=== PATIENT | male | born 1945 | race Caucasian/White ===

== ENCOUNTER 2023-10-13 18:28 | Inpatient (IN) | payer MEDICARE, SELFPAY ==
[2023-10-13] VITALS (13 sets, daily range): BP systolic 119–131; BP diastolic 61–78; PULSE 52–70; RESP 12–24; TEMP 35.8–37; O2SAT 95–100; BMI 26.5
--- NOTE | 2023-10-13 18:30 | EKG12_ITS ---
Test Reason : STEMI Blood Pressure : / mmHG Vent. Rate : 055 BPM Atrial Rate : 055 BPM P-R Int : 224 ms QRS Dur : 080 ms QT Int : 432 ms P-R-T Axes : 081 048 089 degrees QTc Int : 413 ms Critical Test Result: STEMI Sinus bradycardia with 1st degree A-V block with Premature atrial complexes Inferior infarct , possibly acute Lateral injury pattern ACUTE CA / STEMI Consider right ventricular involvement in acute inferior infarct Abnormal ECG Confirmed by KATHE PAGE, TESSY ([id number]), society editor KATY HARTLEY ([id number]) on 10/15/2023 11:48:44 AM Referred By: Rajeev Johnson Confirmed By:TESSY ARCHULETA MD
--- NOTE | 2023-10-13 18:34 | ED.VIS.CHEST ---
HPI History of Present Illness Chief Complaint: Chest Pain Detail of Chief Complaint: Chest pressure with diaphoresis shortness of breath Informant: patient Onset/Context/Timing Onset: Hours (0.5 hours prior to presentation) Activity at onset: sudden and exertion Timing: Continuous Quality: Positive for Pressure and Tightness Location: Substernal Current Severity: Moderate Maximum Severity: Severe Worsened By: Exertion Relieved By: Nothing Associated Symptoms: Positive for Nausea, Diaphoresis and Dyspnea Narrative Narrative: Patient is a 78-year-old male. History of type 2 diabetes on metformin for 10 years, elevated cholesterol. He does have elevated blood pressure on no meds. He is a former smoker. He was shoveling dirt in the garden. He developed chest discomfort. Squad was called. Prehospital EKG revealed criteria for inferior myocardial infarction. There is artifact. STEMI was called. On arrival patient Solimene chest pain. He is pale diaphoretic acid. He appears uncomfortable. He denies black or maroon stool. He denies history of congestive heart failure or any cardiac disease. He denies history of VTE. Prior Similar Symptoms: No Recent Illness/Hospitalization: No CVD Risk Factors: Positive for Hypertension, Diabetes and Hypercholesterolemia PE Risk Factors: Negative for Recent Travel/Surgery, Recent Immobilization, Prior DVT or PE, Cancer or OCP + Smoking + >/=35 TAD Risk Factors: Positive for Hypertension; Negative for Marfan's Syndrome or Family History PFSH PFSH Allergy/AdvReac Type Severity Reaction Status Date / Time No Known Allergies Allergy Verified 10/13/23 18:40 Social History (Updated 10/13/23 @ 18:[address] Royce Crook MD) household members: spouse Smoking Status: Former smoker ROS ROS ED Constitutional Constitutional ED: Denies chills or fever(s) Eyes Eyes: Reports none ENT ENT ED: Denies ear pain or rhinorrhea Cardiovascular Cardiovascular: Reports as per HPI; Denies orthopnea or paroxysmal nocturnal dyspnea Respiratory/Chest Respiratory/Chest: Reports dyspnea and dyspnea on exertion; Denies cough, orthopnea or paroxysmal nocturnal dyspnea Gastrointestinal Gastrointestinal: Reports nausea; Denies abdominal pain, melena or vomiting Genitourinary Genitourinary ED: Denies dysuria, hematuria or urinary frequency Musculoskeletal Musculoskeletal: Denies arthralgias, back pain or neck pain Integumentary Denies rash Neurologic Neurologic: Denies weakness Psychiatric Psychiatric: Denies anxiety or depression Endocrine Endocrinology: Reports cold intolerance and heat intolerance Hematologic/Lymphatic Hematologic/Lymphatic: Denies easy bleeding or easy bruising EXAM Physical Exam Const Positive well nourished and well developed Constitutional Narrative: Patient is diaphoretic and ashen in appearance General Appearance ED: well developed and pallor HEENT Reports moist mucous membranes normocephalic and atraumatic Eyes PERRL and EOMs intact bilaterally General Eye ED: Yes pale conjunctiva Chest Wall inspection of chest normal Resp No normal respiratory effort and No clear to auscultation bilaterally Auscultation: rales bilateral base Cardio regular rate, regular rhythm, S1 normal heart sound, S2 normal heart sound and no murmurs Peripheral Pulses: pulses 2+ throughout GI normal to inspection, nondistended, normoactive bowel sounds, soft to palpation, non-tender, non-distended and no masses; Negative for hepatosplenomegaly Back/Spine no CVA tenderness Extremity normal to inspection General Extremety ED: Negative for edema or pulses abnormal General Extremity: Negative for edema or pulses abnormal Neuro oriented x3 and CN's II-XII intact bilaterally Sensorium / Orientation: awake Psych mental status grossly normal Skin Skin Narrative: Diaphoretic and ashen in color General Skin Exam: pallor; Negative for jaundice MDM MDM MDM Narrative Medical decision making narrative: Family was called from prehospital EKG. Patient's story was consistent with acute coronary syndrome. EKG was obtained upon arrival and reveals ST elevation HI inferior leads with reciprocal changes. Patient does have evidence of first-degree heart block and is bradycardic. Squad was ordered to give. Aspirin, 180 of Brilinta and 4000 units of heparin prior to arrival. EKG obtained in the ER was sent to ethylene oxide panelboard operator. History & Record Review Discussion w/independent historian: EMS personnel, Patient and Family EKG Initial EKG: Interpretation: Sinus Bradycardia (Rate is 55. MD interval is 224 ms. QRS duration 80 ms. QT duration 432 ms. [place] is normal. Patient meets criteria for acute inferior myocardial infarction. There is reciprocal changes.) Treatment and Re-Evaluation :: Patient taken to Household Appliance Mechanic. Critical Care Time Critical Care Time: Yes Critical care time (excluding procedures): 30-74 minutes (15), Including time spent: (History, physical, prehospital communication, interpretation of prehospital EKG, discussion with ethylene oxide panelboard operator), Discussing w/Patient &/or Family/Elementary Assistant Teacher, Discussing w/Consultants and Arranging Admission or Transfer (Dr. Padilla is made aware of the patient and will see patient in Household Appliance Mechanic.) Discharge Plan Triage Chief Complaint: Chest Pain ED Provider: Royce Crook Dx/Rx/DC Orders Clinical Impression: Acute inferior myocardial infarction, Hypercholesterolemia, Type 2 diabetes mellitus, Hypertension, Bradycardia, sinus, First degree AV block Primary Care Provider: Jaylon Montemayor Disposition Disposition: Acute Care Hospital [facility]
[2023-10-13] MEDS: Ondansetron 4 MG/2 ML Vial IV (18:38)
[2023-10-13] MEDS: HYDROmorphone 0.5 MG/0.5 ML SYRINGE IV (18:39)
--- NOTE | 2023-10-13 19:06 | HP.PCM.HOS_ITS ---
HPI - General General Date of Admission: 10/13/23 Date of Service: 10/13/23 Chief Complaint: Chest pressure about 5:45 PM on 10/13/2023, STEMI alert HPI Narrative JONATHON PADILLA, is a 78 M came to ED with sudden onset of chest pressure in the mid dle of chest with radiation to jaw while he was drinking and working in his garden. It was severe 7-8/10 intensity, without relieving factor but of course aggravated by drinking and exertion. Patient stated that he was very heavy breathing and felt like could not breathe. He also sweating but denies any palpitation or passing out. Patient has history of hypertension, not on medication, diabetes mellitus type 2 for 10 years and dyslipidemia. Prehospital EKG revealed criteria for inferior wall RI and STEMI alert was called. Patient was mainly taken to Industrial Custodian and history was taken in the Industrial Custodian. EKG discussion assessment plan. Labs and chest x-ray were ordered Social history: Former smoker. Denies significant alcohol use or substance use. PFSH Allergy/AdvReac Type Severity Reaction Status Date / Time No Known Allergies Allergy Verified 10/13/23 18:40 Social History household members: spouse Smoking Status: Former smoker ROS ROS Narrative Constitutional: Reports severe acute onset of fatigue and weakness. No fever. HEENT: Reports systems reviewed and no addt'l complaints, except as documented Respiratory/Chest: Labored breathing, could not breathe at time of chest pressure. CVS: As described in HPI Gastrointestinal: Denies coffee ground emesis, hematemesis or vomiting Genitourinary: Denies burning urination or new urinary tract symptoms Musculoskeletal: Denies acute joint pain or limited range of motion. No acute injury Neurologic: Denies seizure-like symptoms. skin: No ulcer. No rash Endocrinology: Reports systems reviewed and no addt'l complaints, except as documented Hematologic/Lymphatic: Reports systems reviewed and no addt'l complaints, except as documented Rest 14 ROS are negative except as mentioned in HPI Vital Signs Vital Signs Vital Signs: 10/13/23 18:30 10/13/23 18:35 10/13/23 18:41 Temperature 96.5 F L Temperature Source Temporal Pulse Rate 56 L Respiratory Rate 24 H 24 H Respiratory Effort Short of Breath Respiratory Pattern Tachypnea Blood Pressure 131/78 H 131/78 H Blood Pressure Mean 95 Pulse Ox 95 Oxygen Delivery Method Nasal Cannula Oxygen Flow Rate (L/min) 2 10/13/23 18:42 Temperature 96.5 F L Temperature Source Pulse Rate 56 L Respiratory Rate 24 H Respiratory Effort Respiratory Pattern Blood Pressure 131/78 H Blood Pressure Mean 95 Pulse Ox 95 Oxygen Delivery Method Oxygen Flow Rate (L/min) Weight Weight: 0 oz Body Mass Index (BMI) 0.0 Physical Exam Narrative General: Alert, Oriented x3, Cooperative, morbid obese, diaphoretic HEENT: Atraumatic, PERRLA, EOMI, Normocephalic Oral: Oral mucosa dry no Gingival or Mucosal Lesions/ Ulcerations Neck: Supple, No JVD, Negative Carotid Bruits Chest wall/Lungs: Air entry diminished in bilateral lung bases. No crepitation/rhonchi Cardiovascular: Sinus rhythm rhythm, Normal S1, Normal S2, No M/G/R Abdomen: Bowel Sounds Present, Soft, Non Tender, Non-Distended : No dysuria. No renal angle tenderness. No suprapubic tenderness. Extremities: No edema, Capillary Refill Less than 3 Seconds Skin: No rashes, No breakdown Musculoskeletal: Chronic degenerative arthritis. No acute Tenderness to [place] ion of Joints or Extremities Neurological: Cranial nerves II-XII grossly intact, DTR 2+/4. No acute focal neurological deficit. Psych/Mental Status: Flat affect Assessment & Plan Assessment/Plan (1) Acute inferior myocardial infarction: (2) Bradycardia, sinus: PLAN: Plan Is a 71-year-old gentleman is being admitted after diagnosis of a STEMI, had a STEMI alert in the ED directly taken to the Industrial Custodian 1. Inferior wall STEMI: Twelve-lead EKG individually reviewed. It shows ST elevation about 4 mm in lead to 3 and aVF, reciprocal ST segment depression AND T wave inversio in V1 and V2. T waves upright in V4 V6, 1 and aVL. Sinus bradycardia at rate of 55 bpm, CO interval 224 ms, QRS 80 ms QT 430 ms. Therefore sinus bradycardia with first-degree AV block. Patient meets EKG criteria of inferior wall STEMI and directly taken to Industrial Custodian from ED as per protocol. Aspirin 324 mg, Brilinta 180 mg ordered but patient already in Industrial Custodian. Nitro ointment 1 inch every 6 hourly, hold for hypotension/headache. Patient is sinus bradycardic therefore an not candidate for beta-kyle and blood pressure systolic in 131. 2D echo is ordered. Further management and plan after the cardiac cath as recommended by the auto polisher. Patient will be admitted in ICU after cardiac cath. 2. Hypertension: BP 131/78, respiratory 24/min. Pulse ox 95% on 2 L of oxygen. Heart rate 56/min. Blood pressure in normal range. Does not need antihypertensive agent for now 3. Diabetes mellitus type 2: Home medications not updated yet. As per ED physician note patient on metformin but patient does not understand home medication as per med reconciliation. A1c tomorrow a.m. 4. Dyslipidemia: Fasting profile tomorrow AM. 5. Morbid obesity: Brand Marketing Manager consult and weight loss counseling done. 6. VTE prophylaxis: High risk. Lovenox 40 mg subcu daily after 24 hours cardiac cath if coagulation parameters permit. Discontinue if platelet count drops less than 50,000 or hemoglobin less than 8 g% Advance directive/living will: Full code unverified. Patient in Industrial Custodian, emergent cardiac cath therefore deferred for future Charges/Coding Visit Charges Inpatient E&M: 37873 Init Hosp L3
--- NOTE | 2023-10-13 19:11 | EKG12_ITS ---
Test Reason : post hear cath Blood Pressure : / mmHG Vent. Rate : 055 BPM Atrial Rate : 055 BPM P-R Int : 184 ms QRS Dur : 082 ms QT Int : 428 ms P-R-T Axes : 062 -14 065 degrees QTc Int : 409 ms Sinus bradycardia Inferior infarct , age undetermined Abnormal ECG When compared with ECG of 13-OCT-2023 18:27, MANUAL COMPARISON REQUIRED, DATA IS UNCONFIRMED Confirmed by KATHE PAGE, TESSY ([id number]), editorial cartoonist SUKI FLORES ([id number]) on 10/15/2023 9:36:25 AM Referred By: Rajeev Johnson Confirmed By:TESSY ARCHULETA MD
[2023-10-13 19:47] LABS: Absolute Lymphocyte Count 3.73 X10^3/uL (0.83-4.51); Basophil# 0.09 X10^3/uL; Eosinophil# 0.29 X10^3/uL; Eosinophils% 3.2 % (0-5); Hematocrit 45.2 % (40-54); Hemoglobin 14.7 g/dL (13.0-16.5); Lymphocyte # 3.73 X10^3/ul (0.83-4.51); Lymphocyte % 41.8 % (19-41); Mean Corp Hgb Conc 32.5 g/dL (32-36); Mean Corpuscular Hgb 27.5 pg (27.0-32.0); Mean Corpuscular Volume 84.5 fL (80-94); Monocyte# 0.79 X10^3/uL; Monocyte% 8.8 % (0-10); NRBC Flagged by Analyzer 0 % (0-5); Neutrophil % 44.9 % (47-70); Platelet Count 215 K/mm3 (150-450); RBC Distribution Width CV 13.4 % (11.6-14.6); RBC Distribution Width SD 41.1 fl (35.1-43.9); Red Blood Count 5.35 M/mm3 (4.6-6.2); White Blood Count 8.9 K/mm3 (4.4-11.0)
[2023-10-13 19:56] LABS: Prothrombin Time (Protime)PT. 12.9 SECONDS (11.7-14.9)
[2023-10-13 19:57] LABS: Partial Thromboplast Time 26.7 Seconds (24.1-36.2)
[2023-10-13 20:02] LABS: ALB/GLOB Ratio 1.3 RATIO (0.9-2.4); AST(SGOT) 13 U/L (15-37); Alanine Aminotransfer ALT/SGPT 17 U/L (16-61); Albumin, Serum 3.9 g/dL (3.2-5.0); Alkaline Phosphatase 77 U/L (45-117); Anion Gap 9 (5-15); BUN 24 mg/dL (7-18); BUN/Creat Ratio 18.5 RATIO (10-20); Calcium,Total 9.1 mg/dL (8.5-10.1); Chloride 110 mmol/L (98-107); EST Glomerular Filtration Rate 57 mL/min (>60); Est Glom Filt Rate - Afr Amer 69 mL/min (>60); Globulin 3.1 g/dL (2.2-4.2); Glucose 159 mg/dL (74-106); Potassium 3.9 mmol/L (3.5-5.1); Sodium Level 142 mmol/L (136-145); Troponin-I HS 6 pg/mL (3.0-78.0)
--- NOTE | 2023-10-13 20:11 | PCM.CONS.C ---
Assessment & Plan Assessment/Plan (1) Acute inferior myocardial infarction: PLAN: Treated with drug-eluting stents to the distal RCA. Patient has residual disease in the left main and LAD that will need staged PCI or CABG. At this time please keep the patient on aspirin, Brilinta, statin. His heart rate has improved after PCI. Most likely he should be able to tolerate a beta-kyle from tomorrow morning. HPI Consult Data Date of Consult: 10/13/23 HPI Narrative Reason for Consultation: STEMI HPI Narrative: JONATHON PADILLA, is a 78 M who presents with chest pain and was found to have inferior ST elevation NE on EKG. He was brought emergently to the cardiac Client Architect and underwent coronary angiography which revealed 100% occlusion of the distal RCA that was treated with drug-eluting stents. He has residual 50% stenosis in the left main and 80% stenosis in the LAD diagonal bifurcation that will need staged PCI. Patient's chest pain has resolved at the end of the procedure and is doing well. He is being admitted to the CCU for further management. Review of systems: All systems reviewed. All system negative except that in HPI PFSH Allergy/AdvReac Type Severity Reaction Status Date / Time No Known Allergies Allergy Verified 10/13/23 18:40 Social History household members: spouse Smoking Status: Former smoker Physical Exam Const alert HEENT normocephalic Eyes no scleral icterus Resp normal respiratory effort Psych mental status grossly normal Risk Stratification Risk Stratification Applicable: No Charges/Coding Visit Charges Inpatient E&M: 11502 Init Hosp L2 Objective Data Vital Signs: Vital Signs Temp Pulse Resp BP Pulse Ox O2 Del Method O2 Flow Rate 96.5 F L 56 L 24 H 131/78 H 95 Nasal Cannula 2 10/13/23 18:42 10/13/23 18:42 10/13/23 18:42 10/13/23 18:42 10/13/23 18:42 10/13/23 18:35 10/13/23 18:35 Oxygen Flow Rate (L/min) 2 Oxygen Delivery Method Nasal Cannula Weight: 0 oz Body Mass Index (BMI) 0.0 Intake & Output: Intake and Output for Last 24 Hours 10/11/23 10/12/23 10/13/23 23:59 23:59 23:59 Intake Total 0 / 0 Balance 0 / 0 Lab / Micro Data 10/13/23 18:45 10/13/23 18:45 Labs: Laboratory Results - last 24 hr 10/13/23 18:45: WBC 8.9, RBC 5.35, Hgb 14.7, Hct 45.2, MCV 84.5, MCH 27.5, MCHC 32.5, RDW Std Deviation 41.1, RDW Coeff of Jag 13.4, Plt Count 215, MPV 12.0, Immature Gran % (Auto) 0.300, Neut % (Auto) 44.9 L, Lymph % (Auto) 41.8 H, Preston % (Auto) 8.8, Eos % (Auto) 3.2, Baso % (Auto) 1.0, Absolute Neuts (auto) 4.0, Absolute Lymphs (auto) 3.73, Nucleated RBC % 0, PT 12.9, INR 1.0, APTT 26.7, Sodium 142, Potassium 3.9, Chloride 110 H, Carbon Dioxide 23.0, Anion Gap 9, BUN 24 H, Creatinine 1.30, Estim Creat Clear Calc 0.00, Est GFR (MDRD) Af Amer 69, Est GFR (MDRD) Non-Af 57 L, BUN/Creatinine Ratio 18.5, Glucose 159 H, Calcium 9.1, Magnesium 2.0, Total Bilirubin 0.60, AST 13 L, ALT 17, Alkaline Phosphatase 77, Troponin I High Sens 6, Total Protein 7.0, Albumin 3.9, Globulin 3.1, Albumin/Globulin Ratio 1.3 Cardiology Labs/Tests 10/13/23 18:45: WBC 8.9, RBC 5.35, Hgb 14.7, Hct 45.2, MCV 84.5, MCH 27.5, MCHC 32.5, Plt Count 215, MPV 12.0, Immature Gran % (Auto) 0.300, Neut % (Auto) 44.9 L, Lymph % (Auto) 41.8 H, Preston % (Auto) 8.8, Eos % (Auto) 3.2, Baso % (Auto) 1.0, Absolute Neuts (auto) 4.0, Nucleated RBC % 0, PT 12.9, INR 1.0, APTT 26.7, Sodium 142, Potassium 3.9, Chloride 110 H, Carbon Dioxide 23.0, Anion Gap 9, BUN 24 H, Creatinine 1.30, Est GFR (MDRD) Af Amer 69, Est GFR (MDRD) Non-Af 57 L, BUN/Creatinine Ratio 18.5, Glucose 159 H, Calcium 9.1, Magnesium 2.0, Total Bilirubin 0.60 Rhythm: EKG: ECHO: Stress Test: Cardiac Cath: PCI: CT Surgery: Holter monitor: EPS: PPM: CXR: Chest CT Scan:
--- NOTE | 2023-10-13 20:15 | ECHOD_ITS ---
Reason For Study: S/P MT Procedure This was a 2D Doppler, Color Flow transthoracic echocardiogram. Exam performed portable in ICU/CCU. Left Ventricle Normal LV size. Left ventricular systolic function is normal. The left ventricular ejection fraction is 60 %. Stage 1 diastolic dysfunction. No regional wall motion abnormalities noted. Right Ventricle Normal RV size. Normal systolic function. Atria Normal left atrium. Normal right atrium. Mitral Valve Normal mitral valve. Tricuspid Valve Normal tricuspid valve. Mild tricuspid valve insufficiency. Aortic Valve Trisinus/trileaflet aortic valve. Pulmonic Valve Normal pulmonic valve. Great Vessels Normal aortic root. The pulmonary artery is normal size. Normal inferior vena cava. Pericardium/Pleural No pericardial effusion. MMode/2D Measurements & Calculations LVIDd: 4.2 cm IVSd: 1.2 cm Ao root diam: 3.4 cm LVIDs: 2.8 cm LVPWd: 1.0 cm RVDd: 3.8 cm FS: 34.3 % LAV(MOD-bp): 24.9 ml LVAd ap4: 25.6 cm2 LVAd ap2: 23.7 cm2 LAV(MOD-bp) Indexed: 12.6 ml/m2 LVLd ap4: 8.7 cm LVLd ap2: 8.7 cm LAV(MOD-sp2): 25.3 ml EDV(MOD-sp4): 62.2 ml EDV(MOD-sp2): 52.5 ml LAV(MOD-sp4): 25.3 ml EDV(sp4-el): 64.3 ml EDV(sp2-el): 55.1 ml LVAs ap4: 14.6 cm2 LVAs ap2: 11.7 cm2 LVLs ap4: 7.3 cm LVLs ap2: 6.8 cm ESV(MOD-sp4): 24.4 ml ESV(MOD-sp2): 16.9 ml ESV(sp4-el): 24.6 ml ESV(sp2-el): 17.0 ml EF(MOD-sp4): 60.7 % EF(MOD-sp2): 67.9 % EF(sp4-el): 61.8 % SV(MOD-sp4): 37.7 ml SV(MOD-sp2): 35.6 ml SV(sp4-el): 39.7 ml LA dimension(2D): 3.6 cm LA A4 area: 11.7 cm2 RA A4 area: 9.9 cm2 TAPSE: 2.3 cm Time Measurements MV dec time: 0.22 sec Doppler Measurements & Calculations MV E max sha: 76.9 cm/sec Lat Peak E' Sha: 6.7 cm/sec Med Peak E' Sha: 6.7 cm/sec MV A max sha: 81.7 cm/sec E/E' lat: 11.4 E/E' med: 11.4 MV E/A: 0.94 MV V2 max: 91.3 cm/sec MV P1/2t max sha: 89.0 cm/sec Ao V2 max: 193.4 cm/sec MV max P.3 mmHg MV P1/2t: 70.3 msec Ao max P.0 mmHg MV V2 mean: 46.2 cm/sec MV dec slope: 371.2 cm/sec2 Ao V2 mean: 140.8 cm/sec MV mean P.0 mmHg Ao mean P.7 mmHg MV V2 VTI: 31.1 cm MVA(P1/2t): 3.1 cm2 Ao V2 VTI: 41.2 cm AV (velocity ratio): 0.76 LV V1 max: 143.7 cm/sec PA V2 max: 91.4 cm/sec TR max sha: 187.6 cm/sec LV V1 max P.3 mmHg PA V2 mean: 62.3 cm/sec TR max P.1 mmHg LV V1 mean P.9 mmHg LV V1 mean: 90.9 cm/sec LV V1 VTI: 31.2 cm ECHO/Echo Complete Interpretation Summary Normal LV size. Left ventricular systolic function is normal. The left ventricular ejection fraction is 60 %. Stage 1 diastolic dysfunction. Ordering Physician: Jaylon Montemayor Referring Physician: Rajeev Johnson Performed By: Es Leon, MIKYCS, RVT
--- NOTE | 2023-10-13 20:30 | CL.I_ITS ---
Patient Name: JONATHON PADILLA Study Date: 10/13/2023 Performing: Joie Johnson MD Ht: 69 inches 175.26 cm : 1945 Wt: 175.2 lbs 79.37 kg Age: 78 Gender: male BSA: 1.95 PROCEDURE(S) PERFORMED DC02-(50087)LHC/COR IC16-([id number]/[id number])AMI, JAXON OR PTCA, ARTERY/GRAFT, SINGLE VESSEL CLINICAL PROFILE AND CO-MORBIDITIES Indications: ACS <= 24 hrs Heart Failure: None Stress/Imaging Stress/Image Study Performed: No CAD Presentations: STEMI. Symptom onset Date/Time: 10/13/23 Time Not Available CONCLUSIONS CAD as described. Successful thrombectomy and drug-eluting stent placement to the distal RCA RECOMMENDATIONS Patient will need staged PCI/CABG of left main and LAD diagonal bifurcation DESCRIPTION OF PROCEDURE The patient arrived to the procedure lab. The risks and benefits of the procedure as well as a full description of our services here and lack of surgical backup were fully explained to the patient and/or their significant other prior to the catheterization. The Timeout was completed, verifying the correct patient and procedure. The patient's procedural site was prepped and draped in the usual fashion. Local anesthetic was given subcutaneously to right radial region with Lidocaine 2%. Using a modified Seldinger technique, arterial access was obtained via the right radial artery, a 6Fr sheath was inserted.. Right Coronary Artery selective angiography was then performed in multiple views using a 5 Fr. JR 4 catheter. Left Coronary Artery selective angiography was performed in multiple views using a 5 Fr. JL3.5 catheter inserted and engaged into the RCA. bmw Guide wire was advanced to the RCA. susana 3.0 x 8 Drug Eluting stent was advanced across the lesion in the right coronary, distal. Angiogram performed post stent deployment. susana 3.0 x 12 Drug Eluting stent was advanced across the lesion in the right coronary, distal. Angiogram performed post stent deployment. The arterial sheath was pulled and a TR Band was applied for hemostasis CORONARY ANGIOGRAPHY DOMINANCE: Right Dominant LEFT MAIN: 50 % Stenosis LEFT ANTERIOR DESCENDING ARTERY: PROX LAD: 80 % Stenosis This is at the LAD diagonal bifurcation. Immediately after the diagonal branch there is an 80% stenosis in the mid LAD as well. CIRCUMFLEX ARTERY: Mild luminal irregularities RIGHT CORONARY ARTERY: DISTAL RCA: 100 % Stenosis INTERVENTION INFORMATION LESION SITE: RCA (Distal) Lesion Complexity: High/C, chronic total occlusion: No, lesion at bifurcation: No, thrombus present: Yes, lesion length: 8 mm, culprit lesion: Yes, Previously treated lesion: No Pre Stenosis: 100 % Pre intervention SRINI flow: 0 PROCEDURE: Thrombectomy, Drug Eluting Stent with pre dilatation. Post Stenosis: 0 % Post intervention SRINI flow: 3 Lesion Devices: Cordis 6 Fr JR4 100cm Guide Catheter Zhou .014 190cm BMW [place] Straight Terumo Priority One Aspiration Catheter Medtronic 3.0 x 08 SUSANA FRONTIER JAXON Medtronic 3.0 x 12 SUSANA FRONTIER JAXON COMPLICATIONS No Complications PROCEDURE MEDICATIONS Versed 2 mg IV Fentanyl 50 mcg IV Oxygen: 2 L/min via nasal cannula Heparin given IA 10/13/2023 18:57:25 Nitro 200 mcg IC 10/13/2023 19:11:02 Nitro 100 mcg Ia radial 10/13/2023 19:19:18 Nitro 100 mcg IC 10/13/2023 19:22:02 Verapamil 2.5mg, given IA 10/13/2023 19:18:13 SUMMARY OF HEMODYNAMIC DATA Time AIR REST ECG 18:47:25 AO 111/40 (61) SA 19:00:52 Signed By Joie Johnson MD On 10/13/2023 20:30:11 Joie Johnson MD
[2023-10-13 20:52] LABS: Lactic Acid 2.7 mmol/L (0.4-1.9)
--- NOTE | 2023-10-13 21:00 | NURSING ---
Patient arrived from Compensation Advisor with a large hematoma on the right forearm (same side as Radial puncture site). The area of the hematoma was covered by a inflated blood pressure cuff for 15 minutes per Paola/Nico RN report when transferring the patient which was removed by the Compensation Advisor RNs after that 15 minutes was up.
[2023-10-13] MEDS: Nitroglycerin Oint 1 INCH PACKET TD (21:12)
[2023-10-13] MEDS: 0.9% Normal Saline (1000mL) 1,000 ML 75 ML IV (21:14)
--- NOTE | 2023-10-13 22:26 | CRPHASE1_ITS ---
Patient Communication Patient Information PHII Cardiac Rehab Discussed with Patient:: Yes Guide to Cardiac Rehab Given to Patient:: Yes Cardiac Rehab Facility Choice List Given to Patient:: Yes Communication to Cardiac Rehab Choice Program [facility] CR PHII:: Communication Given to CR Electrical Intern:: Rajeev Johnson Phase II Cardiac Rehab:: Yes Sessions:: 36 sessions - 3 days/wk, 12 weeks Cardiac Rehabilitation Info Program Information Cardiac Rehabilitation Program Information: Cardiac Rehab The cardiac rehab team at [facility] consists of highly skilled exercise physiologists, nurses, respiratory therapists and physicians working together with you. Our purpose is to help you have a full recovery and achieve the goals you set for yourself. Over the years many of our patients have returned to activities they assumed they would never do again! We can help restore your confidence and motivation to make lifestyle changes that can have a significant impact on your health and quality of life! We can help answer questions and concerns you may have about exercise, lifestyle, medications, diet, stress and anxiety which are common following a hospitalization. WE monitor ECG and vital signs during exercise and discuss your progress with you and report to your physician(s). Cardiac Rehab is proven to help reduce readmissions, improve functional capacity and lower recurrence of problems with your heart. Our Cardiac Rehab program is Certified by the [place] [employer] Pulmonary [employer] (AACVPR) and Accredited by the [employer] through our [facility]. You can contact us at . We invite you to call us with your questions or to get started in our program. If you have other questions or concerns be sure to ask your physician/provider during your follow-up visit. WE look forward to seeing you!
--- NOTE | 2023-10-13 22:27 | CRPH1.INST_ITS ---
General Education Discussed with Patient CAD and cardiac anatomy and function:: Patient communicates acknowledgment Explanation of diagnoses and procedures:: Patient communicates acknowledgment Sign/Symptoms of [place]:: Patient communicates acknowledgment Antiplatelet therapy: Patient communicates acknowledgment Proper use of NTG-SL: Patient communicates acknowledgment Emergency procedures and activation of EMS: Patient communicates acknowledgment Compliance of all prescribed medications: Patient communicates acknowledgment Smoking Risk Factors Patient Nicotine/Smoking Risk Factors Are:: Non-smoker Recommendations Recommendations Include:: Smoking cessation strategies/Smoking packet, Second- hand smoke recommendation and Previous smoker; encourage continued cessation Response Code Nicotine/Smoking Response Code:: Patient communicates acknowledgment Dyslipidemia Risk Factors Patient Dyslipidemia Risk Factors Are:: Total Cholesterol, Triglycerides, HDL and LDL Recommendations Recommendations Include:: Lipid profile provided, Lipid profile not available, Reviewed NCEP/ATP guidelines and Therapeutic Lifestyle Change dietary guidelines Response Code Dyslipidemia Response Code:: Patient communicates acknowledgment Overweight/Obesity Risk Factors Patient Overweight/Obesity Risk Factors Are:: Overweight = 26-29 Recommendations Recommendations Include:: Weight loss of 5-10%, Reduced calorie diet and Exercise 5-7 times/week Response Code Overweight/Obesity:: Patient communicates acknowledgment Hypertension Recommendations Recommendations Include:: BP <130/80 if diabetic, DASH dietary guidelines, Decrease/maintain normal body weight and Moderation of ETOH Response Code Hypertension:: Patient communicates acknowledgment Diabetes Risk Factors Patient Diabetes Risk Factors Are:: Elevated blood sugars and Post-op hyperglycemia Recommendations Recommendations Include:: Maintain fasting blood sugars 70-110 md/dL, Maintain HgbA1c of 6% or less, Monitor blood sugar as prescribed, Diabetic dietary guidelines and Decrease/maintain body weight Response Code Diabetes:: Patient communicates acknowledgment Metabolic Syndrome Risk Factors Patient Metabolic Syndrome Risk Factors Are [3 of 5]:: Fasting blood sugar > 100 mg/dL, Waist circumference > 35 [female] or 40 [male], High triglyceride >150, Hypertension and Low HDL <40 [male] or < 50 [female] Recommendations Recommendations Include:: Reinforce compliance to risk factor modifications and Patient is diabetic Response Code Metabolic Syndrome Response Code:: Patient communicates acknowledgment Sedentary Risk Factors Patient Sedentary Risk Factors Are:: Lack of regular exercise Recommendations Recommendations Include:: Aerobic exercise 5-7 times/week for 20-30 minutes continuously, Benefits of regular exercise, Discussed home walking program and Monitored Outpatient Cardiac Rehab Response Code Sedentary Response Code:: Patient communicates acknowledgment Stress Recommendations Recommendations Include:: Identification of stressors, and assessment of coping skills and Stress management techniques Response Code Stress Response Code:: Patient communicates acknowledgment
[2023-10-13 22:50] LABS: Troponin-I HS 2045 pg/mL (3.0-78.0)
--- NOTE | 2023-10-13 23:00 | RAD_ITS ---
INDICATION: chest pain -- If not obtained within past 24 hours. EXAMINATION/TECHNIQUE: X-RAY - AP view of chest COMPARISON: None FINDINGS: LINES/DEVICES: None. LUNGS: Slightly hyperexpanded lungs. No pulmonary edema. Bibasilar linear opacities. No sizable pleural effusion. No detectable pneumothorax. MEDIASTINUM AND CARDIOVASCULAR STRUCTURES: Heart normal size. Atherosclerotic calcifications along aorta. BONES AND SOFT TISSUES: Skeletal degenerative changes. Chronic right rib fractures. RAD/Chest 1 View (Portable) IMPRESSION: Mild COPD with bibasilar linear scarring versus atelectasis. Electronically Signed: Jaylon Barone MD at 1:26 EDT ,
--- NOTE | 2023-10-13 23:39 | NURSING ---
Firm, raised hematoma without ecchymosis noted to pt's right forearm proximal to TR band positioning, encompassing most of the brachioradialis muscle from the antecubital fossa distal toward tendon attachment. Explained to pt importance of removing hematoma as it could be r/t nerve, tissue and blood vessel compression and possible discomfort it may cause during the massage; area massaged w/firm rotational pressure until noted firmness was removed. Pt tolerated procedure w/grimacing and groaning, but refused offered pain medicine, stating, You aren't going to be doing this all night, are you? Pt informed that the site will be monitored and then determine if further massage is necessary.
[2023-10-14] VITALS (27 sets, daily range): BP systolic 92–188; BP diastolic 57–92; PULSE 50–68; RESP 13–25; TEMP 36–36.9; O2SAT 94–100; BMI 26.5
[2023-10-14 00:15] LABS: Reflex Lactate? Y
[2023-10-14 03:07] LABS: Absolute Lymphocyte Count 2.14 X10^3/uL (0.83-4.51); Absolute Neutrophil Count 5.4 X10^3/uL (2.0-7.7); Basophil# 0.08 X10^3/uL; Basophil% 0.9 % (0-1); Eosinophil# 0.12 X10^3/uL; Eosinophils% 1.4 % (0-5); Hematocrit 38.8 % (40-54); Hemoglobin 12.6 g/dL (13.0-16.5); Lymphocyte # 2.14 X10^3/ul (0.83-4.51); Lymphocyte % 25.1 % (19-41); Mean Corp Hgb Conc 32.5 g/dL (32-36); Mean Corpuscular Hgb 27.5 pg (27.0-32.0); Mean Corpuscular Volume 84.5 fL (80-94); Mean Platelet Vol. 10.9 fl (6.2-12.0); Monocyte# 0.76 X10^3/uL; Monocyte% 8.9 % (0-10); NRBC Flagged by Analyzer 0 % (0-5); Neutrophil # 5.38 X10^3/uL (2.7-7.7); Neutrophil % 63.2 % (47-70); Platelet Count 167 K/mm3 (150-450); RBC Distribution Width CV 13.2 % (11.6-14.6); RBC Distribution Width SD 40.6 fl (35.1-43.9); Red Blood Count 4.59 M/mm3 (4.6-6.2); White Blood Count 8.5 K/mm3 (4.4-11.0)
[2023-10-14 03:31] LABS: Anion Gap 5 (5-15); BUN 25 mg/dL (7-18); BUN/Creat Ratio 24.5 RATIO (10-20); Calcium,Total 8.4 mg/dL (8.5-10.1); Chloride 113 mmol/L (98-107); Cholesterol 109 mg/dL (200); Creatinine, Serum 1.02 mg/dL (0.70-1.30); EST Glomerular Filtration Rate 75 mL/min (>60); Est Glom Filt Rate - Afr Amer 91 mL/min (>60); Estimated Creatinine Clearance 60.65 ml/min; Glucose 143 mg/dL (74-106); High Density Lipoprotein 42 mg/dL; Phosphorus 4.2 mg/dL (2.5-4.9); Sodium Level 143 mmol/L (136-145); Thyroid Stim Hormone (TSH) 2.04 uIU/mL (0.358-3.74); Triglycerides 155 mg/dL; Very Low Density Lipoprotein 31 mg/dL (5-40)
[2023-10-14 03:35] LABS: Troponin-I HS 7124 pg/mL (3.0-78.0)
[2023-10-14 04:12] LABS: Lactic Acid 0.9 mmol/L (0.4-1.9)
[2023-10-14 08:15] LABS: Hemoglobin A1c 6.9 % (3.8-5.6)
--- NOTE | 2023-10-14 08:44 | PCM.PN.CARD ---
Subjective Subjective Patient seen and evaluated. Status post inferior wall myocardial infarction yesterday. Objective Data Vital Signs: Vital Signs Temp Pulse Resp BP Pulse Ox O2 Del Method O2 Flow Rate 97.3 F L 58 L 20 H 140/76 H 95 Room Air 2 10/14/23 06:05 10/14/23 07:00 10/14/23 07:00 10/14/23 07:00 10/14/23 07:26 10/14/23 07:26 10/14/23 07:00 FiO2 2 10/13/23 20:10 Oxygen Flow Rate (L/min) 2 Oxygen Delivery Method Room Air Weight: 179 lb 14.355 oz Body Mass Index (BMI) 26.5 Intake & Output: Intake and Output for Last 24 Hours 10/12/23 10/13/23 10/14/23 23:59 23:59 23:59 Intake Total 0 / 0 200 / 200 Output Total 0 / 0 0 / 0 Balance 0 / 0 200 / 200 Lab / Micro Data 10/14/23 02:50 10/14/23 02:50 Labs: Laboratory Results - last 24 hr 10/13/23 18:45: WBC 8.9, RBC 5.35, Hgb 14.7, Hct 45.2, MCV 84.5, MCH 27.5, MCHC 32.5, RDW Std Deviation 41.1, RDW Coeff of Jag 13.4, Plt Count 215, MPV 12.0, Immature Gran % (Auto) 0.300, Neut % (Auto) 44.9 L, Lymph % (Auto) 41.8 H, [place] % (Auto) 8.8, Eos % (Auto) 3.2, Baso % (Auto) 1.0, Absolute Neuts (auto) 4.0, Absolute Lymphs (auto) 3.73, Nucleated RBC % 0, PT 12.9, INR 1.0, APTT 26.7, Sodium 142, Potassium 3.9, Chloride 110 H, Carbon Dioxide 23.0, Anion Gap 9, BUN 24 H, Creatinine 1.30, Estim Creat Clear Calc 0.00, Est GFR (MDRD) Af Amer 69, Est GFR (MDRD) Non-Af 57 L, BUN/Creatinine Ratio 18.5, Glucose 159 H, Calcium 9.1, Magnesium 2.0, Total Bilirubin 0.60, AST 13 L, ALT 17, Alkaline Phosphatase 77, Troponin I High Sens 6, Total Protein 7.0, Albumin 3.9, Globulin 3.1, Albumin/Globulin Ratio 1.3 10/13/23 20:10: Lactic Acid 2.7 H* 10/13/23 22:00: Troponin I High Sens 2045 H* 10/14/23 02:50: WBC 8.5, RBC 4.59 L, Hgb 12.6 L, Hct 38.8 L, MCV 84.5, MCH 27.5, MCHC 32.5, RDW Std Deviation 40.6, RDW Coeff of Jag 13.2, Plt Count 167, MPV 10.9, Immature Gran % (Auto) 0.500, Neut % (Auto) 63.2, Lymph % (Auto) 25.1, [place] % (Auto) 8.9, Eos % (Auto) 1.4, Baso % (Auto) 0.9, Absolute Neuts (auto) 5.4, Absolute Lymphs (auto) 2.14, Nucleated RBC % 0, Sodium 143, Potassium 4.0, Chloride 113 H, Carbon Dioxide 25.0, Anion Gap 5, BUN 25 H, Creatinine 1.02, Estim Creat Clear Calc 60.65, Est GFR (MDRD) Af Amer 91, Est GFR (MDRD) Non-Af 75, BUN/Creatinine Ratio 24.5 H, Glucose 143 H, Hemoglobin A1c 6.9 H, Lactic Acid 0.9, Calcium 8.4 L, Phosphorus 4.2, Troponin I High Sens 7124 H*, Triglycerides 155, Cholesterol 109, LDL Cholesterol 36, VLDL Cholesterol 31, HDL Cholesterol 42, TSH 2.04 Cardiology Labs/Tests 10/13/23 18:45: WBC 8.9, RBC 5.35, Hgb 14.7, Hct 45.2, MCV 84.5, MCH 27.5, MCHC 32.5, Plt Count 215, MPV 12.0, Immature Gran % (Auto) 0.300, Neut % (Auto) 44.9 L, Lymph % (Auto) 41.8 H, [place] % (Auto) 8.8, Eos % (Auto) 3.2, Baso % (Auto) 1.0, Absolute Neuts (auto) 4.0, Nucleated RBC % 0, PT 12.9, INR 1.0, APTT 26.7, Sodium 142, Potassium 3.9, Chloride 110 H, Carbon Dioxide 23.0, Anion Gap 9, BUN 24 H, Creatinine 1.30, Est GFR (MDRD) Af Amer 69, Est GFR (MDRD) Non-Af 57 L, BUN/Creatinine Ratio 18.5, Glucose 159 H, Calcium 9.1, Magnesium 2.0, Total Bilirubin 0.60 10/13/23 20:10: Lactic Acid 2.7 H* 10/14/23 02:50: WBC 8.5, RBC 4.59 L, Hgb 12.6 L, Hct 38.8 L, MCV 84.5, MCH 27.5, MCHC 32.5, Plt Count 167, MPV 10.9, Immature Gran % (Auto) 0.500, Neut % (Auto) 63.2, Lymph % (Auto) 25.1, [place] % (Auto) 8.9, Eos % (Auto) 1.4, Baso % (Auto) 0.9, Absolute Neuts (auto) 5.4, Nucleated RBC % 0, Sodium 143, Potassium 4.0, Chloride 113 H, Carbon Dioxide 25.0, Anion Gap 5, BUN 25 H, Creatinine 1.02, Est GFR (MDRD) Af Amer 91, Est GFR (MDRD) Non-Af 75, BUN/Creatinine Ratio 24.5 H, Glucose 143 H, Hemoglobin A1c 6.9 H, Lactic Acid 0.9, Calcium 8.4 L, Phosphorus 4.2, Triglycerides 155, Cholesterol 109, LDL Cholesterol 36, VLDL Cholesterol 31, HDL Cholesterol 42 Rhythm: EKG: ECHO: Stress Test: Cardiac Cath: PCI: CT Surgery: Holter monitor: EPS: PPM: CXR: Chest CT Scan: Radiography Diagnostic Testing: Radiology Impression Chest X-Ray 10/13/23 23:00 IMPRESSION: Mild COPD with bibasilar linear scarring versus atelectasis. Electronically Signed: Jaylon Barone MD at 1:26 EDT , Physical Exam Const alert, oriented x3 and no apparent distress General Appearance: cooperative HEENT hearing grossly normal bilaterally Head and Scalp: atraumatic Eyes EOMs intact bilaterally Neck General: normal visual inspection Chest inspection of chest normal and palpation of chest normal Resp normal respiratory effort Auscultation: clear to auscultation bilaterally Cardio regular rate, regular rhythm, S1 normal heart sound and S2 normal heart sound Jugular Venous Distention: JVD GI normal to inspection, nondistended, normoactive bowel sounds Extremity normal capillary refill and no pedal edema Extremity Narrative: Right arm is swollen. Minimally bruised. Peripheral Pulses: Yes pulses 2+ throughout and femoral pulses present Skin no rashes or lesions noted Neuro oriented x3 and CN's II-XII intact bilaterally Psych Appearance: grossly normal and appropriate Assessment & Plan Assessment/Plan (1) Acute inferior myocardial infarction: PLAN: Patient has a history of acute inferior wall myocardial infarction status post angioplasty and stenting of the right coronary artery. He does have residual disease noted in the left main as well as the left anterior descending artery. This will be evaluated as an outpatient probably in a tertiary care facility after discussion with interventionalists. Recommend continue aspirin and Brilinta High intensity statin Low-dose beta-kyle Echocardiogram in a.m. to assess ventricular function Will monitor in ICU overnight. (2) Hypertension: PLAN: Blood pressure appears to be stable at this particular time. No major changes will be made. (3) Hypercholesterolemia: PLAN: Continue high intensity statin. His lipid profile does not appear to be significantly abnormal. Thank you for allowing me to participate in the care of your patient. Please don't hesitate to call if any issues arise.
[2023-10-14] MEDS: Aspirin 81 MG TAB.CHEW PO (08:45)
[2023-10-14] MEDS: Pantoprazole Sodium 40 MG Tablet PO (08:45)
[2023-10-14] MEDS: Lisinopril 5 MG Tablet PO (08:46)
[2023-10-14] MEDS: TICAGRELOR 90 MG TABLET PO ×2 (08:59→20:59)
[2023-10-14] MEDS: Carvedilol 3.125 MG TABLET PO ×2 (08:59→20:59)
[2023-10-14 09:04] LABS: Bedside Glucose 137 mg/dL (74-106)
--- NOTE | 2023-10-14 09:17 | EKG12_ITS ---
Test Reason : post pci Blood Pressure : / mmHG Vent. Rate : 057 BPM Atrial Rate : 057 BPM P-R Int : 174 ms QRS Dur : 080 ms QT Int : 406 ms P-R-T Axes : 050 -31 053 degrees QTc Int : 395 ms Sinus bradycardia Left axis deviation Inferior infarct , age undetermined Abnormal ECG Confirmed by KATHE PAGE, TESSY ([id number]), editor in chief newspaper SUKI FLORES ([id number]) on 10/16/2023 6:41:05 AM Referred By: Rajeev Johnson Confirmed By:TESSY ARCHULETA MD
--- NOTE | 2023-10-14 11:14 | PN.HOSP_ITS ---
Reason for Visit Reason for Visit: Diagnoses Pure hypercholesterolemia, unspecified (10/13/23) Essential (primary) hypertension (10/13/23) ST elevation (STEMI) myocardial infarction involving other coronary artery of inferior wall (10/13/23) Bradycardia, unspecified (10/13/23) Subjective Subjective Patient presented as a STEMI alert yesterday afternoon, had stenting x 1 done to the distal RCA. No acute events overnight. Patient seen at bedside this morning. Patient was sitting up comfortably in bed, conversing normally, in no acute distress. Breathing comfortably on room air. He denied any chest pain or shortness of breath at rest. Primary concern is that his right arm feels swollen by his IV site. Denies any other acute concerns currently. Objective Data Objective Data Vital Signs: Vital Signs Temp Pulse Resp BP Pulse Ox O2 Del Method O2 Flow Rate 96.8 F L 68 18 92/61 96 Room Air 2 10/14/23 08:00 10/14/23 10:00 10/14/23 10:00 10/14/23 10:00 10/14/23 10:00 10/14/23 10:00 10/14/23 07:00 FiO2 2 10/13/23 20:10 Oxygen Flow Rate (L/min) 2 Oxygen Delivery Method Room Air Weight: 81.6 kg Body Mass Index (BMI) 26.5 Intake & Output: Intake and Output for Last 24 Hours 10/12/23 10/13/23 10/14/23 23:59 23:59 23:59 Intake Total 0 / 0 1291.25 / 1291.25 Output Total 0 / 0 0 / 0 Balance 0 / 0 1291.25 / 1291.25 Lab / Micro Data 10/14/23 02:50 10/14/23 02:50 Labs: Laboratory Results - last 24 hr 10/13/23 18:45: WBC 8.9, RBC 5.35, Hgb 14.7, Hct 45.2, MCV 84.5, MCH 27.5, MCHC 32.5, RDW Std Deviation 41.1, RDW Coeff of Jag 13.4, Plt Count 215, MPV 12.0, Immature Gran % (Auto) 0.300, Neut % (Auto) 44.9 L, Lymph % (Auto) 41.8 H, [place] % (Auto) 8.8, Eos % (Auto) 3.2, Baso % (Auto) 1.0, Absolute Neuts (auto) 4.0, Absolute Lymphs (auto) 3.73, Nucleated RBC % 0, PT 12.9, INR 1.0, APTT 26.7, Sodium 142, Potassium 3.9, Chloride 110 H, Carbon Dioxide 23.0, Anion Gap 9, BUN 24 H, Creatinine 1.30, Estim Creat Clear Calc 0.00, Est GFR (MDRD) Af Amer 69, Est GFR (MDRD) Non-Af 57 L, BUN/Creatinine Ratio 18.5, Glucose 159 H, Calcium 9.1, Magnesium 2.0, Total Bilirubin 0.60, AST 13 L, ALT 17, Alkaline Phosphatase 77, Troponin I High Sens 6, Total Protein 7.0, Albumin 3.9, Globulin 3.1, Albumin/Globulin Ratio 1.3 10/13/23 20:10: Lactic Acid 2.7 H* 10/13/23 22:00: Troponin I High Sens 2045 H* 10/14/23 02:50: WBC 8.5, RBC 4.59 L, Hgb 12.6 L, Hct 38.8 L, MCV 84.5, MCH 27.5, MCHC 32.5, RDW Std Deviation 40.6, RDW Coeff of Jag 13.2, Plt Count 167, MPV 10. 9, Immature Gran % (Auto) 0.500, Neut % (Auto) 63.2, Lymph % (Auto) 25.1, [place] % (Auto) 8.9, Eos % (Auto) 1.4, Baso % (Auto) 0.9, Absolute Neuts (auto) 5.4, Absolute Lymphs (auto) 2.14, Nucleated RBC % 0, Sodium 143, Potassium 4.0, Chloride 113 H, Carbon Dioxide 25.0, Anion Gap 5, BUN 25 H, Creatinine 1.02, Estim Creat Clear Calc 60.65, Est GFR (MDRD) Af Amer 91, Est GFR (MDRD) Non-Af 75, BUN/Creatinine Ratio 24.5 H, Glucose 143 H, Hemoglobin A1c 6.9 H, Lactic Acid 0.9, Calcium 8.4 L, Phosphorus 4.2, Troponin I High Sens 7124 H*, Tri glycerides 155, Cholesterol 109, LDL Cholesterol 36, VLDL Cholesterol 31, HDL Cholesterol 42, TSH 2.04 10/14/23 08:43: POC Glucose 137 H Radiography Diagnostic Testing: Radiology Impression Chest X-Ray 10/13/23 23:00 IMPRESSION: Mild COPD with bibasilar linear scarring versus atelectasis. Electronically Signed: Jaylon Barone MD at 1:26 EDT , Physical Exam Const alert, oriented x3, no apparent distress and average body habitus Constitutional Narrative: Elderly male, sitting up comfortably in bed, conversing normally, in no acute distress. General Appearance: cooperative and comfortable HEENT normocephalic, head/scalp atraumatic, hearing grossly normal bilaterally and nasal mucous membranes and turbinates normal Eyes PERRL, EOMs intact bilaterally and conjunctivae normal Neck full ROM Chest inspection of chest normal Resp normal respiratory effort, normal air movement, no use of accessory muscles and clear to auscultation bilaterally Cardio regular rate, regular rhythm, no murmurs and peripheral pulses 2+ throughout GI normal to inspection, nondistended, normoactive bowel sounds, soft to palpation, non-tender and non-distended Back/Spine normal ROM Extremity normal to inspection, full ROM and no pedal edema Skin no rashes or lesions noted Neuro moves all extremities and no focal motor deficits Speech: speech normal Psych mental status grossly normal Assessment & Plan Assessment/Plan (1) Acute inferior myocardial infarction: (2) Type 2 diabetes mellitus: PLAN: Plan Patient is a 78-year-old male who presented to [facility] ED on 10/13/2023 with acute onset chest pain and shortness of breath. 1. STEMI ? Cardiology following. Left heart cath 10/12 showed 100% stenosis and distal RCA s/p drug-eluting stent x 1, 80% stenosis in proximal LAD and mid LAD, 50% stenosis in left main. Echo ordered, will be done tomorrow morning. Hemodynamically stable on room air at this time. Continue aspirin, Brilinta, high density statin, low-dose Coreg. Per cardiology, residual coronary disease will be evaluated as an outpatient likely in a tertiary care facility after discussion with interventionalists. If remains stable overnight, may be okay for discharge home tomorrow pending cardiology recs. 2. Newly diagnosed type 2 diabetes mellitus ? A1c 6.9% on admit. Okay for sliding-scale insulin while inpatient. Okay for discharge home on no medications, recommend close outpatient follow-up with PCP. DVT prophylaxis: Lovenox CODE STATUS: Full code, verified Expected disposition: Home, 1 to 2 days Total clinical time spent by myself addressing the patient's medical issues, reviewing all the data, and collaborating with patient's care team: 35 minutes. Charges/Coding Visit Charges Inpatient E&M: 47533 Subs Hosp L2
[2023-10-14] MEDS: Insulin Lispro 100 UNIT/ML INSULN.PEN SC ×3 (11:49→20:59)
[2023-10-14 12:10] LABS: Bedside Glucose 192 mg/dL (74-106)
[2023-10-14 17:13] LABS: Bedside Glucose 150 mg/dL (74-106)
[2023-10-14] MEDS: Atorvastatin Calcium 40 MG Tablet PO (20:59)
[2023-10-15] VITALS (14 sets, daily range): BP systolic 130–172; BP diastolic 60–88; PULSE 60–69; RESP 12–19; TEMP 36.3–36.9; O2SAT 93–98; BMI 25.8
[2023-10-15 03:33] LABS: Hematocrit 42.2 % (40-54); Hemoglobin 13.7 g/dL (13.0-16.5); Mean Corp Hgb Conc 32.5 g/dL (32-36); Mean Corpuscular Hgb 27.3 pg (27.0-32.0); Mean Corpuscular Volume 84.2 fL (80-94); Mean Platelet Vol. 10.9 fl (6.2-12.0); Platelet Count 167 K/mm3 (150-450); RBC Distribution Width CV 13.3 % (11.6-14.6); RBC Distribution Width SD 40.7 fl (35.1-43.9); Red Blood Count 5.01 M/mm3 (4.6-6.2); White Blood Count 9.4 K/mm3 (4.4-11.0)
[2023-10-15 03:45] LABS: Anion Gap 6 (5-15); BUN 19 mg/dL (7-18); BUN/Creat Ratio 19.3 RATIO (10-20); Calcium,Total 8.7 mg/dL (8.5-10.1); Chloride 110 mmol/L (98-107); Creatinine, Serum 0.99 mg/dL (0.70-1.30); EST Glomerular Filtration Rate 78 mL/min (>60); Est Glom Filt Rate - Afr Amer 95 mL/min (>60); Estimated Creatinine Clearance 62.49 ml/min; Glucose 155 mg/dL (74-106); Potassium 3.8 mmol/L (3.5-5.1); Sodium Level 140 mmol/L (136-145)
[2023-10-15 06:23] LABS: Bedside Glucose 175 mg/dL (74-106)
--- NOTE | 2023-10-15 07:06 | PN.HOSP_ITS ---
Reason for Visit Reason for Visit: Diagnoses Type 2 diabetes mellitus without complications (10/13/23) Pure hypercholesterolemia, unspecified (10/13/23) Essential (primary) hypertension (10/13/23) ST elevation (STEMI) myocardial infarction involving other coronary artery of inferior wall (10/13/23) Bradycardia, unspecified (10/13/23) Subjective Subjective No further chest pain. Patient had swelling in his right upper extremity that is improving but lead mason tender and swollen. Objective Data Objective Data Vital Signs: Vital Signs Temp Pulse Resp BP Pulse Ox O2 Del Method O2 Flow Rate 36.9 C 62 16 144/72 H 93 Room Air 2 10/15/23 06:00 10/15/23 06:00 10/15/23 06:00 10/15/23 06:00 10/15/23 06:51 10/15/23 06:51 10/14/23 07:00 FiO2 2 10/13/23 20:10 Oxygen Flow Rate (L/min) 2 Oxygen Delivery Method Room Air Weight: 79.4 kg Body Mass Index (BMI) 25.8 Intake & Output: Intake and Output for Last 24 Hours 10/13/23 10/14/23 10/15/23 23:59 23:59 23:59 Intake Total 0 / 0 Output Total 0 / 0 0 / 0 Balance 0 / 0 Lab / Micro Data 10/15/23 03:20 10/15/23 03:20 Labs: Laboratory Results - last 24 hr 10/14/23 02:50: Hemoglobin A1c 6.9 H 10/14/23 08:43: POC Glucose 137 H 10/14/23 11:46: POC Glucose 192 H 10/14/23 16:48: POC Glucose 150 H 10/14/23 20:58: POC Glucose 175 H 10/15/23 03:20: WBC 9.4, RBC 5.01, Hgb 13.7, Hct 42.2, MCV 84.2, MCH 27.3, MCHC 32.5, RDW Std Deviation 40.7, RDW Coeff of Jag 13.3, Plt Count 167, MPV 10.9, Sodium 140, Potassium 3.8, Chloride 110 H, Carbon Dioxide 24.0, Anion Gap 6, BUN 19 H, Creatinine 0.99, Estim Creat Clear Calc 62.49, Est GFR (MDRD) Af Amer 95, Est GFR (MDRD) Non-Af 78, BUN/Creatinine Ratio 19.3, Glucose 155 H, Calcium 8.7 Physical Exam Const alert and no apparent distress HEENT head/scalp atraumatic and moist oral mucous membranes Resp normal respiratory effort, no retractions, no use of accessory muscles and clear to auscultation bilaterally Cardio regular rate, regular rhythm, S1 normal heart sound and S2 normal heart sound GI normal to inspection, nondistended, normoactive bowel sounds, soft to palpation and non-tender Extremity Extremity Narrative: Swelling and ecchymosis in the antecubital region of the right upper extremity. Normal cap refill in the distal digits on the right side. Sensation intact in the distal right upper extremity. Assessment & Plan Assessment/Plan (1) Acute inferior myocardial infarction: (2) Type 2 diabetes mellitus: PLAN: Plan STEMI * S/P PIC distal RCA with JAXON. * Additionally has 80% stenosis LAD, 50% left main. * Echo pending. * Continue ASA, ticagrelor, HIS, carvedilol. * Per cardiology, residual coronary disease will be evaluated as an outpatient likely in a tertiary care facility after discussion with interventionalists. DM2 * A1c 6.9% on admit. * Carb-controlled diet * Follow up w PCP Okay for discharge home on no medications, recommend close outpatient follow-up with PCP. DVT prophylaxis: Lovenox CODE STATUS: Full code, verified
--- NOTE | 2023-10-15 07:34 | PN.CARD_ITS ---
Subjective Subjective Patient seen and evaluated. Doing well this morning. Arm hurts a little bit. Good pulses. Objective Data Vital Signs: Vital Signs Temp Pulse Resp BP Pulse Ox O2 Del Method O2 Flow Rate 98.5 F 63 16 170/73 H 95 Room Air 2 10/15/23 06:00 10/15/23 07:00 10/15/23 07:00 10/15/23 07:00 10/15/23 07:00 10/15/23 07:00 10/14/23 07:00 FiO2 2 10/13/23 20:10 Oxygen Flow Rate (L/min) 2 Oxygen Delivery Method Room Air Weight: 175 lb 0.752 oz Body Mass Index (BMI) 25.8 Intake & Output: Intake and Output for Last 24 Hours 10/13/23 10/14/23 10/15/23 23:59 23:59 23:59 Intake Total 0 / 0 Output Total 0 / 0 0 / 0 Balance 0 / 0 Lab / Micro Data 10/15/23 03:20 10/15/23 03:20 Labs: Laboratory Results - last 24 hr 10/14/23 02:50: Hemoglobin A1c 6.9 H 10/14/23 08:43: POC Glucose 137 H 10/14/23 11:46: POC Glucose 192 H 10/14/23 16:48: POC Glucose 150 H 10/14/23 20:58: POC Glucose 175 H 10/15/23 03:20: WBC 9.4, RBC 5.01, Hgb 13.7, Hct 42.2, MCV 84.2, MCH 27.3, MCHC 32.5, RDW Std Deviation 40.7, RDW Coeff of Jag 13.3, Plt Count 167, MPV 10.9, Sodium 140, Potassium 3.8, Chloride 110 H, Carbon Dioxide 24.0, Anion Gap 6, BUN 19 H, Creatinine 0.99, Estim Creat Clear Calc 62.49, Est GFR (MDRD) Af Amer 95, Est GFR (MDRD) Non-Af 78, BUN/Creatinine Ratio 19.3, Glucose 155 H, Calcium 8.7 Cardiology Labs/Tests 10/14/23 02:50: Hemoglobin A1c 6.9 H 10/15/23 03:20: WBC 9.4, RBC 5.01, Hgb 13.7, Hct 42.2, MCV 84.2, MCH 27.3, MCHC 32.5, Plt Count 167, MPV 10.9, Sodium 140, Potassium 3.8, Chloride 110 H, Carbon Dioxide 24.0, Anion Gap 6, BUN 19 H, Creatinine 0.99, Est GFR (MDRD) Af Amer 95, Est GFR (MDRD) Non-Af 78, BUN/Creatinine Ratio 19.3, Glucose 155 H, Calcium 8.7 Rhythm: EKG: ECHO: Stress Test: Cardiac Cath: PCI: CT Surgery: Holter monitor: EPS: PPM: CXR: Chest CT Scan: Physical Exam Const alert, oriented x3 and no apparent distress General Appearance: cooperative HEENT hearing grossly normal bilaterally Head and Scalp: atraumatic Eyes EOMs intact bilaterally Neck General: normal visual inspection Chest inspection of chest normal and palpation of chest normal Resp normal respiratory effort Auscultation: clear to auscultation bilaterally Cardio regular rate, regular rhythm, S1 normal heart sound and S2 normal heart sound Jugular Venous Distention: JVD GI normal to inspection, nondistended, normoactive bowel sounds Extremity normal capillary refill and no pedal edema Extremity Narrative: Right arm is swollen. Minimally bruised. Peripheral Pulses: Yes pulses 2+ throughout and femoral pulses present Skin no rashes or lesions noted Neuro oriented x3 and CN's II-XII intact bilaterally Psych Appearance: grossly normal and appropriate Assessment & Plan Assessment/Plan (1) Acute inferior myocardial infarction: PLAN: Patient has a history of acute inferior wall myocardial infarction status post angioplasty and stenting of the right coronary artery. He does have residual disease noted in the left main as well as the left anterior descending artery. This will be evaluated as an outpatient probably in a tertiary care facility after discussion with interventionalists. * Recommend continue aspirin and Brilinta * High intensity statin * Low-dose beta-kyle * Echocardiogram in a.m. to assess ventricular function * Will recommend early appointment in my office for reassessment and tertiary care appointment. (2) Hypertension: PLAN: Blood pressure appears to be stable at this particular time. No major changes will be made. (3) Hypercholesterolemia: PLAN: Continue high intensity statin. His lipid profile does not appear to be significantly abnormal. Thank you for allowing me to participate in the care of your patient. Please don't hesitate to call if any issues arise.
[2023-10-15] MEDS: Insulin Lispro 100 UNIT/ML INSULN.PEN SC ×2 (08:40→12:14)
[2023-10-15] MEDS: Aspirin 81 MG TAB.CHEW PO (09:27)
[2023-10-15] MEDS: Pantoprazole Sodium 40 MG Tablet PO (09:27)
[2023-10-15] MEDS: Lisinopril 5 MG Tablet PO (09:27)
[2023-10-15] MEDS: CHLORHEXIDINE GLUC 2% CLOTH 1 EACH TOWELETTE TOPICAL (09:28)
[2023-10-15] MEDS: Carvedilol 3.125 MG TABLET PO (09:28)
[2023-10-15] MEDS: TICAGRELOR 90 MG TABLET PO (09:28)
--- NOTE | 2023-10-15 09:29 | CASEMGMT ---
CATHY CHRISTOPHER Assessment Face to Face with patient for initial transition planning/care coordination assessment. CATHY CHRISTOPHER introduced self and role at [facility], pt voices understanding. Pt is A&Ox4 and is resting comfortably in bed and is calm. Care providers, pharmacy, and demographics verified. Admitting dx: Inferior Wall STEMI LACE Strata: 2 PCP: Jaylon Montemayor Specialists: Aisha Frederick Pharmacy: [facility]i March Insurance: [employer] [facility] Prescription Benefit: Yes LNOK: Deepika Leblanc (W) Living Arrangements: Pt lives with his in a 2 story home with a FFSU and 2 steps to enter ADLs/IADLs: Ind Transportation: Self, DME: CPAP at night for sleep apnea. Denies additional home oxygen. Pt states that he is a diabetic and takes PO Metformin. Pt states that he has a working BGM and enough supplies to check his BS at home. Pt also has a BP cuff. HHC/SNF: Denies history or needs Pt?s goal: home Plan: Pt plans to DC home with no additional needs at this time and states that he feels safe doing so. Pt plan is to f/u with Dr. Leonard soon after DC. Pt will then be seen as an OP at a tertiary facility to f/u in regard to his cardiac issues. Pt denies further needs at this time. CM to follow for safe DC from [facility]. Dom Mcduffie RN, CM
[2023-10-15 09:43] LABS: Bedside Glucose 154 mg/dL (74-106)
--- NOTE | 2023-10-15 10:40 | DS.PCM_ITS ---
Providers Date of Admission: 10/13/23 Primary Care Physician: Dr. Jaylon Montemayor MD Reason For Visit: INFERIOR WALL STEMI Diagnosis Discharge Diagnosis (1) Acute inferior myocardial infarction: Status: Acute Code(s): I21.19 - ST elevation (STEMI) myocardial infarction involving other coronary artery of inferior wall (2) Type 2 diabetes mellitus: Status: Acute Code(s): E11.9 - Type 2 diabetes mellitus without complications Plan STEMI * S/P PIC distal RCA with JAXON. * Additionally has 80% stenosis LAD, 50% left main. * Echo pending. * Continue ASA, ticagrelor, HIS, carvedilol. * Per cardiology, residual coronary disease will be evaluated as an outpatient likely in a tertiary care facility after discussion with interventionalists. DM2 * A1c 6.9% on admit. * Carb-controlled diet * Follow up w PCP Okay for discharge home on no medications, recommend close outpatient follow-up with PCP. DVT prophylaxis: Lovenox CODE STATUS: Full code, verified Medications at Discharge Home Medications aspirin 81 mg chewable tablet 81 mg PO BREAKFAST #0 tabs 10/15/23 atorvastatin 40 mg tablet 40 mg PO QHS #30 tabs 10/15/23 carvedilol 3.125 mg tablet 3.125 mg PO BID #60 tabs 10/15/23 lisinopril 5 mg tablet 5 mg PO DAILY #30 tabs 10/15/23 ticagrelor 90 mg tablet (Brilinta) 90 mg PO BID #60 tabs 10/15/23 Hospital Course Operations None Procedures 2-D Echocardiogram and Cardiac catheterization Summary of Care Provided Minutes Spent on Discharge: 32 Hospital Course: Patient presents with chest pain on the fourth that went up to his jaw. Patient was found to have ST elevation myocardial infarction. Patient underwent a PCI that showed occlusion of the RCA. Patient did have successful drug-eluting sten t placed. Additionally was noted to have 80% stenosis of the LAD and 50% stenosis of the left main. Cardiology recommended outpatient follow-up at a tertiary facility for evaluation of those vessels. But for the culprit lesion, that was treated with a stent. Patient will continue with aspirin, Brilinta, statin and carvedilol. Weight / BMI Weight Weight: 79.4 kg Body Mass Index (BMI) 25.8 ABG / Lab / Microbiology Data 10/15/23 03:20 10/15/23 03:20 Laboratory: Laboratory Results - last 24 hr 10/14/23 11:46: POC Glucose 192 H 10/14/23 16:48: POC Glucose 150 H 10/14/23 20:58: POC Glucose 175 H 10/15/23 03:20: WBC 9.4, RBC 5.01, Hgb 13.7, Hct 42.2, MCV 84.2, MCH 27.3, MCHC 32.5, RDW Std Deviation 40.7, RDW Coeff of Jag 13.3, Plt Count 167, MPV 10.9, Sodium 140, Potassium 3.8, Chloride 110 H, Carbon Dioxide 24.0, Anion Gap 6, BUN 19 H, Creatinine 0.99, Estim Creat Clear Calc 62.49, Est GFR (MDRD) Af Amer 95, Est GFR (MDRD) Non-Af 78, BUN/Creatinine Ratio 19.3, Glucose 155 H, Calcium 8.7 10/15/23 08:40: POC Glucose 154 H D/C Instructions Discharge Diet: Low fat / Low cholesterol Meaningful Use Info Meaningful Use Meaningful Use Diagnoses (Choose all that apply): AMI AMI/Post PCI/Angioplasty Aspirin given w/in 24hrs of arrival?: Yes ASA at discharge?: Yes Antiplatelet Therapy at Discharge:: Yes Statins at discharge?: Yes Jhon/ARB at discharge?: Yes Beta Nimco at discharge?: Yes Done w/ Acute NE measure.: Yes Documented LVEF (%): 60 Ischemic Stroke Statin Dosing Therapy Reference: STATIN DOSE THERAPY REFERENCE: * Patients > 75 years receive moderate or high dose statin therapy. * Patients 75 years or YOUNGER should receive HIGH intensity statin dose unless contraindicated. You will be required to document reason for non-treatment if statin daily dose does not meet guidelines. HIGH DOSE STATIN THERAPY DAILY Atorvastatin > than or = to 40 mg Rosuvastatin > than or = to 20 mg Amlodipine + Atorvastatin > than or = to 2.5/40 mg Ezetimibe + Simvastatin 10/80 mg Simvastatin 80mg Discharge Plan Admission Admit Date/Time: 10/13/23 19:04 Primary Reason for Your Visit: STEMI Attending Provider: Santhosh Parikh Primary Care Provider: Jaylon Montemayor Consulting Providers: Rohit Marin; Anival Ayers Instructions Patient Instructions: Heart Attack Angina Sx, Heart Attack Dc, Diabetes Serving Portion Sizes, Diabetes Support, Heart Attack Meds, Can You Control Diabetes ... Additional Instructions / Restrictions: You had a myocardial infarction, known as heart attack. You had a stent placed 20 her vessels but is recommended by cardiology that you follow-up with another medical esthetician down the road to have evaluation of couple other vessels that could be a problem in the future. Cardiology can help you facilitate that follow-up when you follow-up with him here. You will be on several medications for your heart. Blood sugar was noted to be elevated as well. Advise that you do watch your caloric intake and to avoid foods such as sweets and juices. There is concern that you do have some underlying diabetes. Do advise you to check your blood sugar daily. In the morning and alternate with the evening. Keep a record does not present as to primary care doctor. Your primary care doctor can determine if you would need to be started any kind of medications for diabetes. Discharge Orders/Prescriptions Prescriptions: New aspirin 81 mg Tablet,Chewable 81 mg PO BREAKFAST Qty: 0 0RF atorvastatin 40 mg Tablet 40 mg PO QHS Qty: 30 0RF carvedilol 3.125 mg Tablet 3.125 mg PO BID Qty: 60 0RF lisinopril 5 mg Tablet 5 mg PO DAILY Qty: 30 0RF Brilinta 90 mg Tablet 90 mg PO BID Qty: 60 0RF Other Ambulatory Orders: Glucometer (Routine) Timeframe: 1 Day Location: Determined by Patient Ordered By: Dr. Santhosh Parikh Referrals / Follow Up: [facility] [Provider Group] - Within 1 Month Jaylon Montemayor MD [Primary Care Provider] - Within 2 Weeks Disposition Disposition (needs filled in before D/C Order can be placed): Home, Self Care Charges/Coding Visit Charges Inpatient E&M: 52672 Disch Hosp >30min
--- NOTE | 2023-10-15 14:01 | CHAPLAIN ---
Type of Pastoral Visit _x__ Initial Visit ___ Follow-up Visit ___ On-call Visit ___ General Patient Visit ___ Spiritual Assessment ___ Family Conference ___ Bereavement ___ Rapid Response ___ Code Blue ___ Other (describe below) Pastoral Care Referral From _x__ Patient ___ Family ___ Nurse ___ Physician ___ Exhibitions Curator ___ Jewel Bearing Broacher ___ Other (describe below) Sacrament/Intervention _x__ Active listening ___ Anointing ___ Jainism ___ Bereavement ___ Communion ___ [place]ietta exploration ___ ___ Life review ___ Prayer ___ Reconciliation ___ Sacrament of Sick _x__ Supportive presence ___ Wedding ___ Other (describe below) Pastoral Comments patient is upbeat and expresses thankfulness for prompt attention and intervention for his heart attack; pt has son with him now for support and expects to go home today; pt says no concerns but grateful for the offer of help
[2023-10-15 14:34] LABS: Bedside Glucose 182 mg/dL (74-106)
--- NOTE | 2023-10-15 14:58 | CASEMGMT ---
Pt has order for DC placed. Pt is prescribed Brilinta to [facility]. TC to [facility] at this time and they state that the pt has a 47$ copay. CATHY CM to pt room at this time and pt updated. Pt educated about the savings card and that he would only be able to use it once in his lifetime and the pt opted to take the savings card at this time. Pt denies further DC needs.
--- NOTE | 2023-10-29 11:40 | QUALITY_ITS ---
STEMI STEMI ED Door Time / Other REG STEMI EKG Time (1) Stented coronary artery: Acute ~10/13/23 18:28
--- NOTE | 2023-10-29 11:40 | ECQM.STEMI ---
STEMI STEMI ED Door Time / Other REG STEMI EKG Time (1) Acute inferior myocardial infarction: Resolved ~10/13/23 18:28 Balloon/Aspiration Date-Time Date of Balloon/Aspiration:: 10/13/23 Time of Balloon/Aspiration:: 19:01
== END 2023-10-15 15:36 | disposition home or self-care (01) | DRG 322 ==
LOC: ED 18:43 → ICU 18:53
PROVIDERS: Hospitalist; Admitting Provider Internal Medicine; Emergency Provider Emergency Medicine; PCP Family Medicine; Referring Provider Specialist
DX: I21.19 ST elevation (STEMI) myocardial infarction involving other coronary artery of inferior wall (principal); E11.9 Type 2 diabetes mellitus without complications; I10 Essential (primary) hypertension; I25.10 Atherosclerotic heart disease of native coronary artery without angina pectoris; E78.00 Pure hypercholesterolemia, unspecified; Z79.84 Long term (current) use of oral hypoglycemic drugs; Z87.891 Personal history of nicotine dependence
CPT/HCPCS: 71045; 80048; 80053; 80061; 82962; 83036; 83605; 83735; 84100; 84443; 84484; 85025; 85027; 85610; 85730; 92941; 93005; 93306; 93454; 94762; 99152; 99283; C1757; J7030; J7040; Q9957; Q9967; A4216; C1769; C1874; C1887; C1894; C9606; J1327; J2405

== ENCOUNTER → 2024-03-07 | Outpatient (CLI) | payer MEDICARE, SELFPAY ==
--- NOTE | 2024-03-07 08:08 | CR.HP_ITS ---
CR - History & Physical General Arrival date:: 03/07/24 Arrival time:: 08:08 Date of Referral:: 02/29/24 Date of CR Evaluation:: 03/07/24 Referring Physician: Dr. Leonard Primary Diagnosis: PCI with stent History of Present Cardiac Event Onset Date PTCA or coronary stenting:: Yes (01/28/24 onset) Vessel: RCA, LAD Medications Ambulatory Orders ?Medication ?Instructions ?Recorded aspirin 81 mg chewable tablet 81 mg PO BREAKFAST #0 tabs 10/15/23 atorvastatin 40 mg tablet 40 mg PO QHS #30 tabs 10/15/23 carvedilol 3.125 mg tablet 3.125 mg PO BID #60 tabs 10/15/23 lisinopril 5 mg tablet 5 mg PO DAILY #30 tabs 10/15/23 metformin 500 mg tablet 500 mg PO BID 11/06/23 tamsulosin 0.4 mg capsule 0.4 mg PO DAILY 11/06/23 clopidogrel 75 mg tablet (Plavix) 75 mg PO QDAY #90 tabs 03/05/24 Allergies Allergies No Known Allergies Allergy (Verified 02/29/24 12:57) Sleep Disorder Evaluation Hx of Sleep Apnea: Yes Do you snore loudly (louder than talking or can be heard through closed doors)?: No Has anyone observed you stop breathing during sleep?: No History of Hypertension (for STOP score): Yes Advanced Directives Advanced Directives Power of Marbleizing Machine Tender: No Living Will: No Advance Directives Information Provided: No Advance Directives on File: No DNR Order?:: No Past Medical History Covid-19 Screening Physicial Symptoms Other Clinical Concerns Exposure Risk Pertinent Comorbidities 65 years or older:: Yes Has a serious heart condition:: Yes Diabetic:: Yes Past Medical Illness Medical History CAD, multiple vessel Hypertension Hypercholesterolemia CPAP (continuous positive airway pressure) dependence Chest pain Wears hearing aid in both ears Diabetes Sleep apnea First degree AV block Type 2 diabetes mellitus Past Surgical History Surgical History Hx of cardiac catheterization (~10/14/23) Stented coronary artery (10/13/23) Social History Smoking History Smoking Status: Never smoker Alcohol Use Alcohol Usage: Yes (rare) Substance Abuse Hx Substance Use: No Occupation Occupation (List type of work in comments):: Retired Hobbies, Recreation, Social Activities Hobbies: Other Recreational Activities: I am able to engage in all my recreational activities Social Environment Status Marital Status: Current Living Arrangements Living Environment:: Spouse Children How many children do you have?: 2 Do any of your children live nearby?: No Safety Do you feel safe in your surroundings?: Yes Assistance Do you need any assistance at home?: no Review of Systems Review of Systems Hints Review of Present Symptoms: Reports Shortness of Breath with Exertion, Angina, Dizziness/Lightheadedness, Fatigue, Appetite - Normal, Appetite - Special Diet and Sleep - Normal; Denies Shortness of Breath at Rest, PVD, Operative Disco mfort, Wound Healing, Heart Arrhythmia/Irregularities or Sexual Changes Pain Is Patient Pain Free?: Yes Risk Factor Assessment Chief Complaint Chief Complaint: PCI with stent Vital Signs Pulse Ox: 95 Blood Pressure: 130/66 Pulse Pulse Rate: 62 Pulse Rhythm: Regular Hypertension How long have you been treated?: 5 months Blood Pressure Sitting - Left Arm: 130/66 Diabetes Diabetic History: Type II Nutrition Referral for Diabetes: Yes Obesity Height: 5 ft 9 in Weight:: 170 lb Weight in Pounds: 170.0 lbs Body Mass Index (BMI): 25.1 Nutritional Referral for Obesity: No Physical Inactivity Physical Inactivity: Reg Exercise 30 min/day Risk Stratification Risk Guidelines: Moderate Risk: Risk Factor for Smoking, Risk Factor for Obesity, Risk Factor for Sedentary Lifestyle and Risk Factor for Depression and Highest Risk: Risk Factor for Dyslipidemia, Risk Factor for Diabetes and Risk Factor for Hypertension For Smoking Smoking Risk Guidelines For Dyslipidemia Dyslipidemia Risk Guidelines For Diabetes Mellitus Diabetes Risk Guidelines For Obesity/Overweight Obesity/Overweight Risk Guidelines For Hypertension Hypertension Risk Guidelines For Sedentary Lifestyle Sedentary Lifestyle Risk Guidelines For Depression Depression Risk Guidelines Motivation Motivation to Participate On a scale of 1 to 10, how prepared are you to commit to attending program?: 7 What do you see as barriers to successfully being able to complete the program?: nothing What do you see as the benefits of succesfully completing the program? In other words, what do you hope to get out of participating in the program?: less SOB, wants to know limitations Are there issues you are dealing with that will interfere with completing the program?: no Do you have a spouse or signficant other, family or friends who will help support you to complete the program?: yes
--- NOTE | 2024-03-07 08:13 | PCM.CR.ITP ---
Diagnosis General Information Admitting Diagnosis: PCI with stent Personal Learning Style:: Audio/Visual Barriers to Learning: No Barriers Stage of change r/t lifestyle modifications:: Contemplation Gave educational material for:: Treating Heart Disease, How The Heart Works, What it means to have Heart Disease, How Coronary Artery Disease is Diagnosed, Heart Procedures, What Heart Medications Do, Risk Factors & Modifications, Living an Active Life, Nutrition, Emotions & Heart Disease, Stress Management & Relaxation and Sleep Disorders & Heart Disease Education/Goals Cardiac Rehabilitation Goals Personal Goals: Initial Assessment: Improve energy level and Control risk factors (learn risk factor modification) Scale for measuring improvement of personal goals Diagnosis & Disease Process Outcomes/Goals: Pt IDs own risk factors & lifestyle modifications by Session 10, Verbalizes symptoms of angina & response by session 3., Pt independently manages and Other Additional Outcomes/Goals: Plan/Interventions: Assist Pt to ID & engage in lifestyle modification to reduce CVD risk, Instruct on individual risk factors, Review symptoms of angina & emergency actions, Review secondary diagnosis & identify educational needs. and Other see comment 30 day Reassessments:: Not Met 30 day Reassessments:: Not Met 30 day Reassessments:: Not Met 30 day Reassessments:: Not Met Final Reassessments:: Not Met Safety Referral to Physical Therapy: No Referral to [facility] Case Management: No Fall Risk Assessed:: Yes Assistive Devices:: None Exercise - Initial Assessment Visit Date of Eval: 03/07/24 (initial eval ) Mets: Pre-: >3 METS for 30 minutes by discharge, >5 METS for 30 minutes by discharge, >7 METS for 30 minutes by discharge and Unable to meet goal due to: (see comment below) Physician Prescribed Exercise Modalities: Treadmill, Rower, Schwinmatthieu Airdyne AD-7, SciFit Stepper, [employer] GroupFit Pro-II Ergometer and [employer] GroupFit Lateral [employer] Worker Frequency: 3x/week for 12 weeks [36 sessions] Intensity: 60-80% of age predicted maximum heart rate reserve Duration: 30 - 45 minutes Current METSs:: 3 Target Heart Rate:: 86-107 EKG Type: SB left axis deviation Outcomes & Goals Goals:: Verbalizes understanding of THR, RPE & goal METS by session 6, Documents in home exercise log/reports 30 min aerobic 5 day/wk by DC, Demonstrates accurate pulse taking by DC and Other additional outcome/goals: see below Intervention & Plan Exercise Program Goals: Instruct on personal THR & RPE, Instruct on MET level & personal MET goal, Show patient to take own pulse /validate performance until accurate, Instruct on home exercise and Other additional plan/int Physical Activity Home Exercise Physical Activity - Home Exercise: Safe Exercise, Warm-up, Self-monitoring, Cool-Down, Home Exercise > 30 min Daily and Sitting Time <3 hours/daily Outcomes & Goals Outcomes/Goals: Demonstrates correct Warm-up/exercise Cool-Down (S3) if = 2.5 METs, Verbalizes symptoms of exercise intolerance by Session 3 (S3), Demonstrate safe equipment use (S3) & follows exercise prescrition (6) and Other: See below Intervention & Plan Plan/Intervention: Instruct warm-up & cool-down if exercising at > 2 METs, Instruct on symptoms of exercise intolerance & actions to take, Instruct & monitor on saf, Assess intial functional capacity & safety risk and Other See below Nutrition - Initial Assessment Program Goals Nutrition Program Goals Patient has diagnosis of Hyperlipidemia (ICD E78)?: Yes Visit Date of Eval: 03/07/24 (initial eval) Cholesterol/Lipids (Other Core Measures) Determine presence & major risk factors that modify LDL goal: Hypertension or hypertensive medication, Low HDL cholesterol <40 mg/dL*, Family history of premature CHD in Male < 55 years: female <65 yearsFa and Age men > 45 years; women >/= 55 years Outcomes/Goals: Pt IDs own risk factors & lifestyle modifications by Session 10, Verbalizes symptoms of angina & response by session 3., Pt independently manages and Other Additional Outcomes/Goals: Intervention/Plan: Advocate for lipid panel cholesterol medication if applicable, Instruct on personal lipid levels & lipid goals/NCEP guidelines, Instruct on cholesterol and Other additional plan/int Referral to dietitian:: No Diabetes (Other Core Measures) Diabetes Type: Diagnosis Type II ICD-10 E11 Insulin dependent injection/pump?: No Non-Insulin Dependent?: Yes Do you monitor your blood sugar at home?: Yes Referral to Diabetic Clinic:: No Outcomes/Goals:: Able to state symptoms of, Able to state, Able to state and Other additional Intervention/Plan:: Instruct on, Refer to, Instruct on and Other Weight Mgt (Other Care) Height: 5 ft 9 in Weight:: 170 lb BMI: 25.1 Diagnosis Overweight/Obesity BMI> 30% ICD-10 E66: No Diagnosis High BMI/Morbid Obesity BMI> 35% ICD-10 Z68: No Outcomes/Goals: Pt sets, maintains & shows weight loss goal & trend during rehab and Other additional outcomes/goals Intervention/Plan: Instruct on ideal BMI & set weight loss goal w/patient, Assist pt to ID & incorporate diet changes for weight loss by S9, Refer to Structured Weight Loss program as appropriate, Encourage goal of using 250-300dcal per session for weight loss and Other additional plan/interventions Healthy Eating Habits Will attend diet classes:: Yes Outcomes/Goals:: Consume diet rich in vegs,fruits,whole grain/high fiber,fish,lean meat, Limit sat/trans fats,cholesterol & added salts & sugars and Other additional outcome/goals: Intervention/Plan:: Assess current eating habits and Other Additional plan/interventions Education Gave educational materials for:: Signs & symptoms of hypoglycemia, Signs & symptoms of hyperglycemia, Relate diabetes to coronary artery disease and Healthy eating Core - Initial Assessment Visit Date of Eval: 03/07/24 (initial eval ) Medication Compliance Preventative Medication(s):: Aspirin, KEELY inhibitor, Clopidogrel/P2Y12 inhibit and Statin/lipid H/O mental health issues: depression, anxiety, or addiction?: No Doesn?t believe in the benefits of treatment?: No Believes medications are unnecessary or harmful?: No Has a concern about medication side effects?: No Expresses concern over the cost of medications?: No Outcomes/Goals: Verbalizes medications,desired effect & common side effects @ DC, Pt self-reports following medication regimen, Keeps card in wallet w/medications listed by DC and Other additional outcome/goals: Interventions/plans: Instruct on medication effects & side effects, Review medication list w/patient every two weeks, Instruct importance of taking meds as ordered & assist problem solving and Other additional Tobacco Use Tobacco Use: Non-smoker Hypertension Hypertension Diagnosis:: Hypertension ICD-10 I10 [place] [employer] Hypertension Guidelines Outcomes/Goals: Able to verbalize/achieve optimal blood pressure <130/80, Incorporates diet changes & exercise for blood pressure control by DC and Other additional outcomes/goals Interventions/plan: Instruct on optimal blood pressure, hypertension & medications, Instruct on effects of sodium, alcohol, stress, exercise &hypertension and Other additional plan/interventions Tobacco Cessation Referral Smoking Cessation Referral:: No Individual Education/Counseling:: No Education Schedule Given:: Yes Psychosocial - Initial Assess VIsit Date of Eval: 03/07/24 (initial eval ) History of previous Mental disease:: No Target Goals Target Goals Psychosocial Test Tool Used:: Kami Snow QOL Cardiac and PHQ-9 Questionnaire phq-9 Severity Referral to Behavioral Health PS - Interventions: Yes: Attend Stress Management Classes Outcomes/Goals: See list Psychosocial Outcomes/Goals:: ID's personal stressors & 2 strategies to manage stress by discharge and Other Additional outcome/goals: Intervention/Plan: See List Interventions/Plan:: Assess stressors,coping strategies & signs of derpression on admission, Instruct/assist pt to develop coping & personal stress Mgt strategies, Refer to Behavioral Health if appropriate, Refer to Physician if appropriate, Instruct patient to recognize signs & symptoms of depression, Instruct patient to recog and Other additional plan/intervention Patient Health Questionnaire PHQ-9 Screening Initial Assessment: 1. Little interest or pleasure in doing things: Not at all 2. Feeling down, depressed, or hopeless: Not at all 3. Trouble falling or staying asleep, or sleeping too much: Not at all 4. Feeling tired or having little energy: Several days 5. Poor appetite or overeating: Not at all 6. Feeling bad about yourself -- or that you are a failure or have let yourself or your family down: Not at all 7. Trouble concentrating on things, such as reading the newspaper or watching television: Not at all 8. Moving or speaking so slowly that other people could have noticed. Or the opposite - being so fidgety or restless that you have been moving around a lot more than usual: Not at all How difficult have these problems made it for you to do your work, take care of things at home, or get along with other people?: Not difficult at all Total Score: 1 NYDIA-Q SV Test Statements CAD is a disease of the arteries in the heart: False Examples of risk factors for heart disease: True Angina is chest pain or discomfort: True The benefits of resistance training include: True Eating more meat and dairy products: False Anti-platelet medications such as aspirin are important: True The only effective way to manage stress: False An exercise warm-up slowly increases heart rate: I Don't Know Prepared, processed foods usually have high sodium: True Depression is common after a heart attack: True The statin medications lower cholesterol: I Don't Know To control blood pressure, lower the amount of sodium: True If someone gets chest discomfort during walking: False Transfats are partially hydrogenated vegetable oils: True Sleep apnea that is not treated increases the risk: I Don't Know To control cholesterol, one should become a vegetarian: False Someone knows if he/she is exercising at the right level: True Diabetes cannot be prevented with exercise & health eating: False Stress is a large risk for heart attack: I Don't Know A diet that can help lower blood pressure is rich in: True Total Score Total Correct Responses: 16 Self-Efficacy 6-Item Scale Initial Assessment: We would like to know how confident you are in doing certain activities. Please select your confidence level for: Fatigue Select Number: 4 Physical Discomfort or Pain Select Number: 4 Emotional Distress Select Number: 7 Other Symptoms or Health Problems Select Number: 6 Different Tasks and Activities Select Number: 6 Medication Select Number: 7 Total Score:: 5 Nutrition Survey Nutrition Survey Instructions Scoring Instructions Nutrition Survey Initial: Have you lost >10 lbs over the past 2 months without trying?: No Are you following a special diet at home for diabetes, low fat, or low salt?: Yes Are you interested in meeting with a dietitian for help understanding your diet?: Yes Do you eat less than 3 meals a day?: No Do you eat fatty meats (silvestre, sausage, ribs, etc), fried foods, desserts, large amounts of salad dressings, margarine, butter, or cheese most days?: No Do you have food allergies? [Enter types in comment field]: No Do you eat in restaurants more than 3 times a week?: No Do you season food with salt, seasoning salt, or garlic salt?: No Do you used canned, boxed, frozen meals, or soups, seasoning packets?: No Total Score:: 2 Exercise - 30-day Assessment Physician Prescribed Exercise Modalities: Treadmill, Rower, Jaen Airdyne AD-7, SciFit Stepper, SciFit Pro-II Ergometer and SciFit Lateral [employer] Worker Exercise - 60-day Assessment Physician Prescribed Exercise Modalities: Treadmill, Rower, Schwinn Airdyne AD-7, SciFit Stepper, SciFit Pro-II Ergometer and SciFit Lateral [employer] Worker Exercise - 90-day Assessment Physician Prescribed Exercise Modalities: Treadmill, Rower, Schwinn Airdyne AD-7, SciFit Stepper, SciFit Pro-II Ergometer and SciFit Lateral [employer] Worker Exercise - Final/Discharge Physician Prescribed Exercise Modalities: Treadmill, ColeerKayli AD-7, SciFit Stepper, SciFit Pro-II Ergometer and SciFit Lateral [employer] Worker Frequency: 3x/week for 12 weeks [36 sessions] Intensity: 60-80% of age predicted maximum heart rate reserve Current METSs:: 3 Target Heart Rate:: 86-107 Nutrition - 30-Day Assessment Weight Mgt (Other Care) Height: 5 ft 9 in Weight:: 170 lb BMI: 25.1 Nutrition - 60-Day Assessment Weight Mgt (Other Care) Height: 5 ft 9 in Weight:: 170 lb BMI: 25.1 Psychosocial - 30-Day Assess Target Goals Target Goals Referral to Behavioral Health PS - Interventions: Yes: Attend Stress Management Classes Psychosocial - 60-Day Assess Target Goals Target Goals Referral to Behavioral Health PS - Interventions: Yes: Attend Stress Management Classes Psychosocial - 90-Day Assess Target Goals Target Goals Referral to Behavioral Health PS - Interventions: Yes: Attend Stress Management Classes Psychosocial - Final Assessmen Target Goals Target Goals Referral to Behavioral Health PS - Interventions: Yes: Attend Stress Management Classes Nutrition - 90-Day Assessment Weight Mgt (Other Care) Height: 5 ft 9 in Weight:: 170 lb BMI: 25.1 Nutrition - Final Assessment Program Goals Patient has diagnosis of Hyperlipidemia (ICD E78)?: Yes Weight Mgt (Other Care) Height: 5 ft 9 in Weight:: 170 lb BMI: 25.1
[2024-03-07 08:27] VITALS: BMI 25.1
[2024-03-07 08:32] VITALS: BP 130/66; PULSE 62; O2SAT 95
[2024-03-07 08:55] VITALS: BMI 25.1
== END | disposition home or self-care (01) ==
PROVIDERS: PCP Family Medicine; Referring Provider Internal Medicine Cardiovascular Disease; Visit Provider Internal Medicine Cardiovascular Disease
DX: E78.00 Pure hypercholesterolemia, unspecified (principal)

== ENCOUNTER 2024-03-10 14:07 | Outpatient (RCR) | payer MEDICARE, SELFPAY ==
[2024-03-07 08:55] VITALS: BMI 25.1
== END 2024-03-10 23:59 ==
LOC: CR 14:07
PROVIDERS: PCP Family Medicine; Referring Provider Internal Medicine Cardiovascular Disease; Visit Provider Internal Medicine Cardiovascular Disease
DX: Z95.5 Presence of coronary angioplasty implant and graft (principal)
CPT/HCPCS: 93798

== ENCOUNTER 2024-04-09 14:15 | Outpatient (RCR) | payer MEDICARE, SELFPAY ==
[2024-03-07 08:55] VITALS: BMI 25.1
--- NOTE | 2024-04-04 09:52 | CR.ITP_ITS ---
Exercise - Initial Assessment Visit Session #:: 11 Physician Prescribed Exercise Modalities: Treadmill, Schwinn Airdyne AD-7 and SciFit Stepper Nutrition - Initial Assessment Weight Mgt (Other Care) Height: 5 ft 9 in Weight:: 173 lb BMI: 25.5 Psychosocial - Initial Assess Target Goals Target Goals Referral to Behavioral Health PS - Interventions: Yes: Attend Stress Management Classes Patient Health Questionnaire PHQ-9 Screening 30-Day Re-eval Assessment: 1. Little interest or pleasure in doing things: Not at all 2. Feeling down, depressed, or hopeless: Not at all 3. Trouble falling or staying asleep, or sleeping too much: Not at all 4. Feeling tired or having little energy: Several days 5. Poor appetite or overeating: Not at all 6. Feeling bad about yourself -- or that you are a failure or have let yourself or your family down: Not at all 7. Trouble concentrating on things, such as reading the newspaper or watching television: Not at all 8. Moving or speaking so slowly that other people could have noticed. Or the opposite - being so fidgety or restless that you have been moving around a lot more than usual: Not at all 9. Thoughts that you would be better off , or of hurting yourself in some way: Not at all How difficult have these problems made it for you to do your work, take care of things at home, or get along with other people?: Not difficult at all Total Score: 1 Self-Efficacy 6-Item Scale 30-Day Re-eval Assessment: We would like to know how confident you are in doing certain activities. Please select your confidence level for: Fatigue Select Number: 4 Physical Discomfort or Pain Select Number: 4 Emotional Distress Select Number: 7 Other Symptoms or Health Problems Select Number: 6 Different Tasks and Activities Select Number: 6 Medication Select Number: 7 Total Score:: 5 Nutrition Survey Nutrition Survey Instructions Scoring Instructions Exercise - 30-day Assessment Visit Date of Eval: 04/04/24 Session #:: 11 Physician Prescribed Exercise Modalities: Treadmill, Schwinn Airdyne AD-7 and SciFit Stepper Frequency: 3x/week for 12 weeks [36 sessions] Intensity: 60-80% of age predicted maximum heart rate reserve Duration: 30 - 45 minutes Current METSs:: 5.4 Target Heart Rate:: 86-107 Current RPE:: 11-13 Maximum Excercise HR:: 103 Resting Blood Pressure: 140/60 Maximum Exercise Blood Pressure: 158/68 EKG Type: SB to ST with occas isolated PAC's, isolated PVC's Outcomes & Goals Goals:: Verbalizes understanding of THR, RPE & goal METS by session 6, Documents in home exercise log/reports 30 min aerobic 5 day/wk by DC, Demonstrates accurate pulse taking by DC and Other additional outcome/goals: see below Intervention & Plan Exercise Program Goals: Instruct on personal THR & RPE, Instruct on MET level & personal MET goal, Show patient to take own pulse /validate performance until accurate, Instruct on home exercise and Other additional plan/int 30-day Reassessments 30 day Reassessments:: Progressing Reassessment Notes & Comments:: RPE explained. Pt demonstrates understanding. Physical Activity Home Exercise Physical Activity - Home Exercise: Safe Exercise, Warm-up, Self-monitoring, Cool-Down, Home Exercise > 30 min Daily and Sitting Time <3 hours/daily Outcomes & Goals Outcomes/Goals: Demonstrates correct Warm-up/exercise Cool-Down (S3) if = 2.5 METs, Verbalizes symptoms of exercise intolerance by Session 3 (S3), Demonstrate safe equipment use (S3) & follows exercise prescrition (6) and Other: See below Intervention & Plan Plan/Intervention: Instruct warm-up & cool-down if exercising at > 2 METs, Instruct on symptoms of exercise intolerance & actions to take, Instruct & monitor on saf, Assess intial functional capacity & safety risk and Other See below 30-day Reassessments 30 day Reassessments:: Progressing Reassessment Notes & Comments:: slow warm up encouraged and demonstrated. Pt is able to return demonstration. Exercise - 60-day Assessment Physician Prescribed Exercise Modalities: Treadmill, Schwinn Airdyne AD-7 and SciFit Stepper Exercise - 90-day Assessment Physician Prescribed Exercise Modalities: Treadmill, Schwinn Airdyne AD-7 and SciFit Stepper Exercise - Final/Discharge Physician Prescribed Exercise Modalities: Treadmill, Schwinn Airdyne AD-7 and SciFit Stepper Nutrition - 30-Day Assessment Program Goals Nutrition Program Goals Patient has diagnosis of Hyperlipidemia (ICD E78)?: Yes Visit Date of Eval: 04/04/24 Session #:: 11 Cholesterol/Lipids (Other Core Measures) Determine presence & major risk factors that modify LDL goal: Hypertension or hypertensive medication, Low HDL cholesterol <40 mg/dL*, Family history of premature CHD in Male < 55 years: female <65 yearsFa and Age men > 45 years; women >/= 55 years Outcomes/Goals: Pt IDs own risk factors & lifestyle modifications by Session 10, Verbalizes symptoms of angina & response by session 3., Pt independently manages and Other Additional Outcomes/Goals: Intervention/Plan: Advocate for lipid panel cholesterol medication if applicable, Instruct on personal lipid levels & lipid goals/NCEP guidelines, Instruct on cholesterol and Other additional plan/int 30-day Reassessments:: Progressing Reassessment Notes & Comments:: Risk factors reviewed. Pt demonstrates understanding. Diabetes (Other Core Measures) Diabetes Type: Diagnosis Type II ICD-10 E11 Insulin dependent injection/pump?: No Non-Insulin Dependent?: Yes Do you monitor your blood sugar at home?: Yes Referral to Diabetic Clinic:: No 30-day Reassessments:: Progressing Reassessment Notes & Comments:: Pt is encouraged to check his BS Weight Mgt (Other Care) Height: 5 ft 9 in Weight:: 173 lb BMI: 25.5 Diagnosis Overweight/Obesity BMI> 30% ICD-10 E66: No Diagnosis High BMI/Morbid Obesity BMI> 35% ICD-10 Z68: No Outcomes/Goals: Pt sets, maintains & shows weight loss goal & trend during rehab and Other additional outcomes/goals Intervention/Plan: Instruct on ideal BMI & set weight loss goal w/patient, Assist pt to ID & incorporate diet changes for weight loss by S9, Refer to Structured Weight Loss program as appropriate, Encourage goal of using 250-300dcal per session for weight loss and Other additional plan/interventions 30 day Reassessments:: Met Reassessment Notes & Comments:: Pt is at a healthy weight Healthy Eating Habits Will attend diet classes:: Yes Outcomes/Goals:: Consume diet rich in vegs,fruits,whole grain/high fib er,fish,lean meat, Limit sat/trans fats,cholesterol & added salts & sugars and Other additional outcome/goals: Intervention/Plan:: Assess current eating habits and Other Additional plan/interventions 30-day Reassessments:: Progressing Reassessment Notes & Comments:: Pt is to attend nutrition class. Pt will be encouraged to have a 1 on 1 consultation with research epidemiologist. Education Gave educational materials for:: Signs & symptoms of hypoglycemia, Signs & symptoms of hyperglycemia, Relate diabetes to coronary artery disease and Healthy eating Nutrition - 60-Day Assessment Weight Mgt (Other Care) Height: 5 ft 9 in Weight:: 173 lb BMI: 25.5 Core - 30-Day Assessment Visit Date of Eval: 04/04/24 Session #:: 11 Medication Compliance Preventative Medication(s):: Aspirin, KEELY inhibitor, Clopidogrel/P2Y12 inhibit, Statin/lipid and Beta kyle H/O mental health issues: depression, anxiety, or addiction?: No Doesn?t believe in the benefits of treatment?: No Believes medications are unnecessary or harmful?: No Has a concern about medication side effects?: No Expresses concern over the cost of medications?: No Outcomes/Goals: Verbalizes medications,desired effect & common side effects @ DC, Pt self-reports following medication regimen, Keeps card in wallet w /medications listed by DC and Other additional outcome/goals: Interventions/plans: Instruct on medication effects & side effects, Review medication list w/patient every two weeks, Instruct importance of taking meds as ordered & assist problem solving and Other additional 30-day Reassessments:: Progressing Reassessment Notes & Comments:: Pt is taking meds as prescribed by his physician. Will continue to monitor. Tobacco Use Tobacco Use: Non-smoker Hypertension Hypertension Diagnosis:: Hypertension ICD-10 I10 Resting Blood Pressure:: 140/60 [place] [employer] Hypertension Guidelines Peak Exercise Blood Pressure:: 158/68 Outcomes/Goals: Able to verbalize/achieve optimal blood pressure <130/80, Incorporates diet changes & exercise for blood pressure control by DC and Other additional outcomes/goals Interventions/plan: Instruct on optimal blood pressure, hypertension & medications, Instruct on effects of sodium, alcohol, stress, exercise &hypertension and Other additional plan/interventions 30 day Reassessments:: Progressing Reassessment Notes & Comments:: Pt's bp's are slightly elevated at times. Wiil give the pt more time before taking bp's. Will send report to pt's physician if necessary. Tobacco Cessation Referral Smoking Cessation Referral:: No Individual Education/Counseling:: No Education Schedule Given:: Yes Psychosocial - 30-Day Assess VIsit Date of Eval: 04/04/24 Session #:: 11 History of previous Mental disease:: No Target Goals Target Goals Psychosocial Test Tool Used:: Ferrans Power QOL Cardiac and PHQ-9 Questionnaire phq-9 Severity Referral to Behavioral Health PS - Interventions: Yes: Attend Stress Management Classes Outcomes/Goals: See list Psychosocial Outcomes/Goals:: ID's personal stressors & 2 strategies to manage stress by discharge and Other Additional outcome/goals: Intervention/Plan: See List Interventions/Plan:: Assess stressors,coping strategies & signs of derpression on admission, Instruct/assist pt to develop coping & personal stress Mgt strategies, Refer to Behavioral Health if appropriate, Refer to Physician if appropriate, Instruct patient to recognize signs & symptoms of depression, Instruct patient to recog and Other additional plan/intervention 30-day Reassessments: 30 day Reassessments:: Met Reassessment Notes & Comments:: pt denies any psychosocial issues at this time. Psychosocial - 60-Day Assess Target Goals Target Goals Referral to Behavioral Health PS - Interventions: Yes: Attend Stress Management Classes Outcomes/Goals: See list Psychosocial Outcomes/Goals:: ID's personal stressors & 2 strategies to manage stress by discharge and Other Additional outcome/goals: Psychosocial - 90-Day Assess Target Goals Target Goals Referral to Behavioral Health PS - Interventions: Yes: Attend Stress Management Classes Psychosocial - Final Assessmen Target Goals Target Goals Referral to Behavioral Health PS - Interventions: Yes: Attend Stress Management Classes Nutrition - 90-Day Assessment Weight Mgt (Other Care) Height: 5 ft 9 in Weight:: 173 lb BMI: 25.5 Nutrition - Final Assessment Weight Mgt (Other Care) Height: 5 ft 9 in Weight:: 173 lb BMI: 25.5
[2024-04-04 10:10] VITALS: BP 140/60; BMI 25.5
== END 2024-04-10 23:59 ==
LOC: CR 14:15
PROVIDERS: PCP Family Medicine; Referring Provider Internal Medicine Cardiovascular Disease; Visit Provider Internal Medicine Cardiovascular Disease
DX: Z95.5 Presence of coronary angioplasty implant and graft (principal)
CPT/HCPCS: 93798

== ENCOUNTER 2024-04-30 14:15 | Outpatient (RCR) | payer MEDICARE, SELFPAY ==
[2024-04-04 10:10] VITALS: BMI 25.5
[2024-04-11 00:25] VITALS: BP 140/60
--- NOTE | 2024-05-07 10:42 | CR.ITP_ITS ---
Exercise - Initial Assessment Physician Prescribed Exercise Modalities: Treadmill, Schwinn Airdyne AD-7 and SciFit Stepper Nutrition - Initial Assessment Weight Mgt (Other Care) Height: 5 ft 9 in Weight:: 172 lb 8 oz BMI: 25.4 Core - Initial Assessment Hypertension Resting Blood Pressure:: 148/68 [place] [employer] Hypertension Guidelines Psychosocial - Initial Assess Target Goals Target Goals Referral to Behavioral Health PS - Interventions: Yes: Attend Stress Management Classes Patient Health Questionnaire PHQ-9 Screening 60-Day Re-eval Assessment: 1. Little interest or pleasure in doing things: Not at all 2. Feeling down, depressed, or hopeless: Not at all 3. Trouble falling or staying asleep, or sleeping too much: Not at all 4. Feeling tired or having little energy: Several days 5. Poor appetite or overeating: Not at all 6. Feeling bad about yourself -- or that you are a failure or have let yourself or your family down: Not at all 7. Trouble concentrating on things, such as reading the newspaper or watching television: Not at all 8. Moving or speaking so slowly that other people could have noticed. Or the opposite - being so fidgety or restless that you have been moving around a lot more than usual: Not at all 9. Thoughts that you would be better off , or of hurting yourself in some way: Not at all How difficult have these problems made it for you to do your work, take care of things at home, or get along with other people?: Not difficult at all Total Score: 1 Self-Efficacy 6-Item Scale 60-Day Re-eval Assessment: We would like to know how confident you are in doing certain activities. Please select your confidence level for: Fatigue Select Number: 4 Physical Discomfort or Pain Select Number: 4 Emotional Distress Select Number: 7 Other Symptoms or Health Problems Select Number: 6 Different Tasks and Activities Select Number: 6 Medication Select Number: 7 Total Score:: 5 Nutrition Survey Nutrition Survey Instructions Scoring Instructions Exercise - 30-day Assessment Physician Prescribed Exercise Modalities: Treadmill, Schwinn Airdyne AD-7 and SciFit Stepper Exercise - 60-day Assessment Visit Date of Eval: 05/07/24 Session #:: 22 Physician Prescribed Exercise Modalities: Treadmill, Schwinn Airdyne AD-7 and SciFit Stepper Frequency: 3x/week for 12 weeks [36 sessions] Intensity: 60-80% of age predicted maximum heart rate reserve Duration: 30 - 45 minutes Current METSs:: 5.5 Target Heart Rate:: 86-114 Current RPE:: 13-14 Maximum Excercise HR:: 100 Resting Blood Pressure: 122/60 Maximum Exercise Blood Pressure: 152/70 EKG Type: SB to ST with rare pac.pvc Outcomes & Goals Goals:: Verbalizes understanding of THR, RPE & goal METS by session 6, Documents in home exercise log/reports 30 min aerobic 5 day/wk by DC, Demonstrates accurate pulse taking by DC and Other additional outcome/goals: see below Intervention & Plan Exercise Program Goals: Instruct on personal THR & RPE, Instruct on MET level & personal MET goal, Show patient to take own pulse /validate performance until accurate, Instruct on home exercise and Other additional plan/int 30-day Reassessments 30 day Reassessments:: Progressing Reassessment Notes & Comments:: THR explained in exercise class. Pt demonstrates understanding Physical Activity Home Exercise Physical Activity - Home Exercise: Safe Exercise, Warm-up, Self-monitoring, Cool-Down, Home Exercise > 30 min Daily and Sitting Time <3 hours/daily Outcomes & Goals Outcomes/Goals: Demonstrates correct Warm-up/exercise Cool-Down (S3) if = 2.5 METs, Verbalizes symptoms of exercise intolerance by Session 3 (S3), Demonstrate safe equipment use (S3) & follows exercise prescrition (6) and Other: See below Intervention & Plan Plan/Intervention: Instruct warm-up & cool-down if exercising at > 2 METs, Instruct on symptoms of exercise intolerance & actions to take, Instruct & monitor on saf, Assess intial functional capacity & safety risk and Other See below 30-day Reassessments 30 day Reassessments:: Progressing Reassessment Notes & Comments:: Cool down explained. Pt is able to return demonstration Exercise - 90-day Assessment Physician Prescribed Exercise Modalities: Treadmill, Schwinn Airdyne AD-7 and SciFit Stepper Exercise - Final/Discharge Physician Prescribed Exercise Modalities: Treadmill, Schwinn Airdyne AD-7 and SciFit Stepper Nutrition - 30-Day Assessment Weight Mgt (Other Care) Height: 5 ft 9 in Weight:: 172 lb 8 oz BMI: 25.4 Nutrition - 60-Day Assessment Program Goals Nutrition Program Goals Patient has diagnosis of Hyperlipidemia (ICD E78)?: Yes Visit Date of Eval: 05/07/24 Session #:: 22 Cholesterol/Lipids (Other Core Measures) Determine presence & major risk factors that modify LDL goal: Hypertension or hypertensive medication, Low HDL cholesterol <40 mg/dL*, Family history of premature CHD in Male < 55 years: female <65 yearsFa and Age men > 45 years; women >/= 55 years Outcomes/Goals: Pt IDs own risk factors & lifestyle modifications by Session 10, Verbalizes symptoms of angina & response by session 3., Pt independently manages and Other Additional Outcomes/Goals: Intervention/Plan: Advocate for lipid panel cholesterol medication if applicable, Instruct on personal lipid levels & lipid goals/NCEP guidelines, Instruct on cholesterol and Other additional plan/int 30-day Reassessments:: Progressing Reassessment Notes & Comments:: Angina explained to pt. Pt demonstrates understanding Diabetes (Other Core Measures) Diabetes Type: Diagnosis Type II ICD-10 E11 Insulin dependent injection/pump?: No Non-Insulin Dependent?: Yes Do you monitor your blood sugar at home?: Yes 30-day Reassessments:: Met Reassessment Notes & Comments:: Pt is doing well with his BS Weight Mgt (Other Care) Height: 5 ft 9 in Weight:: 172 lb 8 oz BMI: 25.4 Diagnosis Overweight/Obesity BMI> 30% ICD-10 E66: No Diagnosis High BMI/Morbid Obesity BMI> 35% ICD-10 Z68: No Outcomes/Goals: Pt sets, maintains & shows weight loss goal & trend during rehab and Other additional outcomes/goals Intervention/Plan: Instruct on ideal BMI & set weight loss goal w/patient, Assist pt to ID & incorporate diet changes for weight loss by S9, Refer to Structured Weight Loss program as appropriate, Encourage goal of using 250- 300dcal per session for weight loss and Other additional plan/interventions 30 day Reassessments:: Met Reassessment Notes & Comments:: pt is at a healthy weight Healthy Eating Habits Will attend diet classes:: Yes Outcomes/Goals:: Consume diet rich in vegs,fruits,whole grain/high fiber,fish,lean meat, Limit sat/trans fats,cholesterol & added salts & sugars and Other additional outcome/goals: Intervention/Plan:: Assess current eating habits and Other Additional plan/interventions 30-day Reassessments:: Met Reassessment Notes & Comments:: Pt has attended nutrition class Education Gave educational materials for:: Signs & symptoms of hypoglycemia, Signs & symptoms of hyperglycemia, Relate diabetes to coronary artery disease and Healthy eating Core - Final Assessment Hypertension Resting Blood Pressure:: 148/68 [place] [employer] Hypertension Guidelines Core - 60-Day Assessment Visit Date of Eval: 05/07/24 Session #:: 22 Medication Compliance Preventative Medication(s):: Aspirin, KEELY inhibitor, Clopidogrel/P2Y12 inhibit, Statin/lipid and Beta kyle H/O mental health issues: depression, anxiety, or addiction?: No Doesn?t believe in the benefits of treatment?: No Believes medications are unnecessary or harmful?: No Has a concern about medication side effects?: No Expresses concern over the cost of medications?: No Outcomes/Goals: Verbalizes medications,desired effect & common side effects @ DC, Pt self-reports following medication regimen, Keeps card in wallet w/medications listed by DC and Other additional outcome/goals: Interventions/plans: Instruct on medication effects & side effects, Review medication list w/patient every two weeks, Instruct importance of taking meds as ordered & assist problem solving and Other additional 30-day Reassessments:: Met Reassessment Notes & Comments:: Pt is currently taking his meds as prescribed Tobacco Use Tobacco Use: Non-smoker Hypertension Hypertension Diagnosis:: Hypertension ICD-10 I10 Resting Blood Pressure:: 122/60 Resting Blood Pressure:: 148/68 [place] [employer] Hypertension Guidelines Peak Exercise Blood Pressure:: 152/70 Outcomes/Goals: Able to verbalize/achieve optimal blood pressure <130/80, Incorporates diet changes & exercise for blood pressure control by DC and Other additional outcomes/goals Interventions/plan: Instruct on optimal blood pressure, hypertension & medications, Instruct on effects of sodium, alcohol, stress, exercise &hypertension and Other additional plan/interventions 30 day Reassessments:: Progressing Reassessment Notes & Comments:: Pt's BP's have improved slightly. Will continue to monitor and send report to pt's physician if necessary. Tobacco Cessation Referral Smoking Cessation Referral:: No Individual Education/Counseling:: No Education Schedule Given:: Yes Psychosocial - 30-Day Assess Target Goals Target Goals Referral to Behavioral Health PS - Interventions: Yes: Attend Stress Management Classes Outcomes/Goals: See list Psychosocial Outcomes/Goals:: ID's personal stressors & 2 strategies to manage stress by discharge and Other Additional outcome/goals: Psychosocial - 60-Day Assess VIsit Date of Eval: 05/07/24 Session #:: 22 History of previous Mental disease:: No Target Goals Target Goals Psychosocial Test Tool Used:: Ferr[employer] Power QOL Cardiac and PHQ-9 Questionnaire phq-9 Severity Referral to Behavioral Health PS - Interventions: Yes: Attend Stress Management Classes Outcomes/Goals: See list Psychosocial Outcomes/Goals:: ID's personal stressors & 2 strategies to manage stress by discharge and Other Additional outcome/goals: Intervention/Plan: See List Interventions/Plan:: Assess stressors,coping strategies & signs of derpression on admission, Instruct/assist pt to develop coping & personal stress Mgt strategies, Refer to Behavioral Health if appropriate, Refer to Physician if appropriate, Instruct patient to recognize signs & symptoms of depression, Instruct patient to recog and Other additional plan/intervention 30-day Reassessments: 30 day Reassessments:: Met Reassessment Notes & Comments:: pt denies psychosocial issues at this time Psychosocial - 90-Day Assess Target Goals Target Goals Referral to Behavioral Health PS - Interventions: Yes: Attend Stress Management Classes Psychosocial - Final Assessmen Target Goals Target Goals Referral to Behavioral Health PS - Interventions: Yes: Attend Stress Management Classes Nutrition - 90-Day Assessment Weight Mgt (Other Care) Height: 5 ft 9 in Weight:: 172 lb 8 oz BMI: 25.4 Nutrition - Final Assessment Weight Mgt (Other Care) Height: 5 ft 9 in Weight:: 172 lb 8 oz BMI: 25.4
[2024-05-07 11:01] VITALS: BP 122/60; BP 148/68; BMI 25.4
== END 2024-05-10 23:59 ==
LOC: CR 14:15
PROVIDERS: PCP Family Medicine; Referring Provider Internal Medicine Cardiovascular Disease; Visit Provider Internal Medicine Cardiovascular Disease
DX: Z95.5 Presence of coronary angioplasty implant and graft (principal)
CPT/HCPCS: 93798

== ENCOUNTER 2024-05-26 14:15 | Outpatient (RCR) | payer MEDICARE, SELFPAY ==
[2024-05-11 00:44] VITALS: BP 122/60; BP 140/60; BP 148/68
--- NOTE | 2024-06-03 07:34 | PCM.CR.ITP ---
Exercise - Initial Assessment Physician Prescribed Exercise Modalities: Treadmill, Schwinn Airdyne AD-7 and SciFit Stepper Nutrition - Initial Assessment Weight Mgt (Other Care) Height: 5 ft 9 in Weight:: 173 lb BMI: 25.5 Psychosocial - Initial Assess Target Goals Target Goals Referral to Behavioral Health PS - Interventions: Yes: Attend Stress Management Classes Patient Health Questionnaire PHQ-9 Screening 90-Day Re-eval Assessment: 1. Little interest or pleasure in doing things: Not at all 2. Feeling down, depressed, or hopeless: Not at all 3. Trouble falling or staying asleep, or sleeping too much: Not at all 4. Feeling tired or having little energy: Several days 5. Poor appetite or overeating: Not at all 6. Feeling bad about yourself -- or that you are a failure or have let yourself or your family down: Not at all 7. Trouble concentrating on things, such as reading the newspaper or watching television: Not at all 8. Moving or speaking so slowly that other people could have noticed. Or the opposite - being so fidgety or restless that you have been moving around a lot more than usual: Not at all 9. Thoughts that you would be better off , or of hurting yourself in some way: Not at all How difficult have these problems made it for you to do your work, take care of things at home, or get along with other people?: Not difficult at all Total Score: 1 Self-Efficacy 6-Item Scale 90-Day Re-eval Assessment: We would like to know how confident you are in doing certain activities. Please select your confidence level for: Fatigue Select Number: 4 Physical Discomfort or Pain Select Number: 4 Emotional Distress Select Number: 7 Other Symptoms or Health Problems Select Number: 6 Different Tasks and Activities Select Number: 6 Medication Select Number: 7 Total Score:: 5 Nutrition Survey Nutrition Survey Instructions Scoring Instructions Exercise - 30-day Assessment Physician Prescribed Exercise Modalities: Treadmill, Schwinn Airdyne AD-7 and SciFit Stepper Exercise - 60-day Assessment Physician Prescribed Exercise Modalities: Treadmill, Schwinn Airdyne AD-7 and SciFit Stepper Exercise - 90-day Assessment Visit Date of Eval: 06/03/24 Session #:: 26 Physician Prescribed Exercise Modalities: Treadmill, Schwinn Airdyne AD-7 and SciFit Stepper Frequency: 3x/week for 12 weeks [36 sessions] Intensity: 60-80% of age predicted maximum heart rate reserve Duration: 30 - 45 minutes Current METSs:: 5.5 Target Heart Rate:: 86-114 Current RPE:: 13-14 Maximum Excercise HR:: 109 Resting Blood Pressure: 156/64 Maximum Exercise Blood Pressure: 152/78 EKG Type: SB to ST with rare pac, pvc Outcomes & Goals Goals:: Verbalizes understanding of THR, RPE & goal METS by session 6, Documents in home exercise log/reports 30 min aerobic 5 day/wk by DC, Demonstrates accurate pulse taking by DC and Other additional outcome/goals: see below Intervention & Plan Exercise Program Goals: Instruct on personal THR & RPE, Instruct on MET level & personal MET goal, Show patient to take own pulse /validate performance until accurate, Instruct on home exercise and Other additional plan/int Physical Activity Home Exercise Physical Activity - Home Exercise: Safe Exercise, Warm-up, Self-monitoring, Cool-Down, Home Exercise > 30 min Daily and Sitting Time <3 hours/daily Outcomes & Goals Outcomes/Goals: Demonstrates correct Warm-up/exercise Cool-Down (S3) if = 2.5 METs, Verbalizes symptoms of exercise intolerance by Session 3 (S3), Demonstrate safe equipment use (S3) & follows exercise prescrition (6) and Other: See below Intervention & Plan Plan/Intervention: Instruct warm-up & cool-down if exercising at > 2 METs, Instruct on symptoms of exercise intolerance & actions to take, Instruct & monitor on saf, Assess intial functional capacity & safety risk and Other See below 30-day Reassessments 30 day Reassessments:: Progressing Reassessment Notes & Comments:: Proper cool down demonstrated and explained to pt. Pt is able to return demonstration Exercise - Final/Discharge Physician Prescribed Exercise Modalities: Treadmill, Schwinn Airdyne AD-7 and SciFit Stepper Nutrition - 30-Day Assessment Weight Mgt (Other Care) Height: 5 ft 9 in Weight:: 173 lb BMI: 25.5 Nutrition - 60-Day Assessment Weight Mgt (Other Care) Height: 5 ft 9 in Weight:: 173 lb BMI: 25.5 Core - 90 Day Assessment Visit Date of Eval: 06/03/24 Session #:: 26 Medication Compliance Preventative Medication(s):: Aspirin, KEELY inhibitor, Clopidogrel/P2Y12 inhibit and Statin/lipid H/O mental health issues: depression, anxiety, or addiction?: No Doesn?t believe in the benefits of treatment?: No Believes medications are unnecessary or harmful?: No Has a concern about medication side effects?: No Expresses concern over the cost of medications?: No Outcomes/Goals: Verbalizes medications,desired effect & common side effects @ DC, Pt self-reports following medication regimen, Keeps card in wallet w/medications listed by DC and Other additional outcome/goals: Interventions/plans: Instruct on medication effects & side effects, Review medication list w/patient every two weeks, Instruct importance of taking meds as ordered & assist problem solving and Other additional Tobacco Use Tobacco Use: Non-smoker Hypertension Resting Blood Pressure:: 156/64 [place] [employer] Hypertension Guidelines Peak Exercise Blood Pressure:: 156/64 Outcomes/Goals: Able to verbalize/achieve optimal blood pressure <130/80, Incorporates diet changes & exercise for blood pressure control by DC and Other additional outcomes/goals Interventions/plan: Instruct on optimal blood pressure, hypertension & medications, Instruct on effects of sodium, alcohol, stress, exercise &hypertension and Other additional plan/interventions 30 day Reassessments:: Progressing Tobacco Cessation Referral Smoking Cessation Referral:: No Individual Education/Counseling:: No Education Schedule Given:: Yes Psychosocial - 30-Day Assess Target Goals Target Goals Referral to Behavioral Health PS - Interventions: Yes: Attend Stress Management Classes Psychosocial - 60-Day Assess Target Goals Target Goals Referral to Behavioral Health PS - Interventions: Yes: Attend Stress Management Classes Psychosocial - 90-Day Assess VIsit Date of Eval: 06/03/24 Session #:: 26 History of previous Mental disease:: No Target Goals Target Goals Psychosocial Test Tool Used:: [employer] QOL Cardiac and PHQ-9 Questionnaire phq-9 Severity Referral to Behavioral Health PS - Interventions: Yes: Attend Stress Management Classes Outcomes/Goals: See list Psychosocial Outcomes/Goals:: ID's personal stressors & 2 strategies to manage stress by discharge and Other Additional outcome/goals: Intervention/Plan: See List Interventions/Plan:: Assess stressors,coping strategies & signs of derpression on admission, Instruct/assist pt to develop coping & personal stress Mgt strategies, Refer to Behavioral Health if appropriate, Refer to Physician if appropriate, Instruct patient to recognize signs & symptoms of depression, Instruct patient to recog and Other additional plan/intervention 30-day Reassessments: 30 day Reassessments:: Met Reassessment Notes & Comments:: Pt denies any psychosocial issues Psychosocial - Final Assessmen Target Goals Target Goals Referral to Behavioral Health PS - Interventions: Yes: Attend Stress Management Classes Nutrition - 90-Day Assessment Program Goals Nutrition Program Goals Patient has diagnosis of Hyperlipidemia (ICD E78)?: Yes Visit Date of Eval: 06/03/24 Session #:: 26 Cholesterol/Lipids (Other Core Measures) Determine presence & major risk factors that modify LDL goal: Cigarette smoking, Hypertension or hypertensive medication, Low HDL cholesterol <40 mg/dL*, Family history of premature CHD in Male < 55 years: female <65 yearsFa and Age men > 45 years; women >/= 55 years Outcomes/Goals: Pt IDs own risk factors & lifestyle modifications by Session 10, Verbalizes symptoms of angina & response by session 3., Pt independently manages and Other Additional Outcomes/Goals: Intervention/Plan: Advocate for lipid panel cholesterol medication if applicable, Instruct on personal lipid levels & lipid goals/NCEP guidelines, Instruct on cholesterol and Other additional plan/int Diabetes (Other Core Measures) Diabetes Type: Diagnosis Type II ICD-10 E11 Insulin dependent injection/pump?: No Non-Insulin Dependent?: Yes Do you monitor your blood sugar at home?: Yes Weight Mgt (Other Care) Height: 5 ft 9 in Weight:: 173 lb BMI: 25.5 Diagnosis Overweight/Obesity BMI> 30% ICD-10 E66: No Diagnosis High BMI/Morbid Obesity BMI> 35% ICD-10 Z68: No Outcomes/Goals: Pt sets, maintains & shows weight loss goal & trend during rehab and Other additional outcomes/goals Intervention/Plan: Instruct on ideal BMI & set weight loss goal w/patient, Assist pt to ID & incorporate diet changes for weight loss by S9, Refer to Structured Weight Loss program as appropriate, Encourage goal of using 250-300dcal per session for weight loss and Other additional plan/interventions Healthy Eating Habits Will attend diet classes:: Yes Outcomes/Goals:: Consume diet rich in vegs,fruits,whole grain/high fiber,fish,lean meat, Limit sat/trans fats,cholesterol & added salts & sugars and Other additional outcome/goals: Intervention/Plan:: Assess current eating habits and Other Additional plan/interventions 30-day Reassessments:: Met Reassessment Notes & Comments:: Pt is doing well Education Gave educational materials for:: Signs & symptoms of hypoglycemia, Signs & symptoms of hyperglycemia, Relate diabetes to coronary artery disease and Healthy eating Nutrition - Final Assessment Weight Mgt (Other Care) Height: 5 ft 9 in Weight:: 173 lb BMI: 25.5
[2024-06-03 07:45] VITALS: BP 156/64; BMI 25.5
== END 2024-06-10 23:59 ==
LOC: CR 14:15
PROVIDERS: PCP Family Medicine; Referring Provider Internal Medicine Cardiovascular Disease; Visit Provider Internal Medicine Cardiovascular Disease
DX: Z95.5 Presence of coronary angioplasty implant and graft (principal)
CPT/HCPCS: 93798

== ENCOUNTER → 2024-10-17 | Outpatient (CLI) | payer MEDICARE, SELFPAY | END | disposition home or self-care (01) | PROVIDERS: PCP Family Medicine; Referring Provider Nurse Practitioner Family; Visit Provider Nurse Practitioner Family | DX: R00.1 Bradycardia, unspecified (principal); I48.0 Paroxysmal atrial fibrillation | CPT/HCPCS: 93225; 93226 ==

== ENCOUNTER → 2024-12-15 | Outpatient (CLI) | payer MEDICARE, SELFPAY ==
[2024-12-15 09:55] LABS: Anion Gap 11 (5-15); BUN 33 mg/dL (4-19); BUN/Creat Ratio 23.4 RATIO (10-20); Calcium,Total 9.4 mg/dL (7.6-11.0); Carbon Dioxide 25.8 mmol/L (21.0-32.0); Chloride 100 mmol/L (98-108); Glucose 258 mg/dL (70-99); Potassium 4.6 mmol/L (3.3-5.1)
== END | disposition home or self-care (01) ==
LOC: LAB 09:02
PROVIDERS: PCP Family Medicine; Referring Provider Student in an Organized Health Care Education/Training Program; Visit Provider Student in an Organized Health Care Education/Training Program
DX: I10 Essential (primary) hypertension (principal); Z51.81 Encounter for therapeutic drug level monitoring; Z79.899 Other long term (current) drug therapy
CPT/HCPCS: 36415; 80048

== ENCOUNTER → 2025-01-05 | Outpatient (CLI) | payer MEDICARE, SELFPAY ==
[2025-01-05 15:40] LABS: Anion Gap 14 (5-15); BUN 24 mg/dL (4-19); BUN/Creat Ratio 19.0 RATIO (10-20); Calcium,Total 9.2 mg/dL (7.6-11.0); Carbon Dioxide 19.6 mmol/L (21.0-32.0); Chloride 106 mmol/L (98-108); Glucose 211 mg/dL (70-99); Potassium 4.2 mmol/L (3.3-5.1)
== END | disposition home or self-care (01) ==
LOC: LAB 14:11
PROVIDERS: PCP Family Medicine; Referring Provider Student in an Organized Health Care Education/Training Program; Visit Provider Student in an Organized Health Care Education/Training Program
DX: Z51.81 Encounter for therapeutic drug level monitoring (principal); Z79.899 Other long term (current) drug therapy; I10 Essential (primary) hypertension
CPT/HCPCS: 36415; 80048